=== PATIENT | male | born 1960 | race Caucasian/White ===

== ENCOUNTER 2019-03-14 18:12 | Inpatient (IN) | payer MEDICARE, MEDICAID ==
[~2019-03-14] VITALS: Ht 182.9 cm; Wt 57.5 kg
[~2019-03-14 18:12] MED LIST: AMIO200T40 PO; ASPI-1009 PO; ATOR40TA PO; DABI150C PO; DIGO125T79 PO; LEVE750T6 PO; LEVO750T21 PO; LISI-604 PO; NITR0.4T51 SL; OMEP20CA11 PO; PRED10TA23 PO; UMEC1DIS PO; etomidate 2mg/ml inj. ONE; rocuronium bromide 100mg/10ml (10mg/ml) injection IV ONE; sod chloride 0.9% 10ml flush syringe IV ONE
[2019-03-14] MEDS ORDERED: ipratropium/albuterol 3ml nebule NEB ONE (18:20)
[2019-03-14] MEDS ORDERED: methylPREDNISolone sod succ 125mg/2ml vial IV ONE (18:20)
[2019-03-14 18:39] LABS: BASOPHILS % (AUTO) 0.1 % (0-1); EOSINOPHILS % (AUTO) 0 % (0-6); HEMATOCRIT 42.1 % (42.0-52.0); HEMOGLOBIN 13.4 g/dl (14.0-17.9); LYMPHOCYTES # (AUTO) 1.1 X10'3 (1.1-4.8); LYMPHOCYTES % (AUTO) 4.9 % (21-51); MEAN CORPUSCULAR HEMOGLOBIN 30.1 PG (27.0-31.0); MEAN CORPUSCULAR HGB CONC 31.9 g/dL (33.0-36.5); MEAN CORPUSCULAR VOLUME 94.4 FL (78-98); MEAN PLATELET VOLUME 7.8 FL (7.4-10.4); MONOCYTES # (AUTO) 1.7 X10'3 (0-0.9); MONOCYTES % (AUTO) 7.8 % (2-12); NEUTROPHILS % (AUTO) 87.2 % (42-75); PLATELET COUNT 243 X10'3 (140-440); RED BLOOD COUNT 4.45 X10'6 (4.70-6.10); WHITE BLOOD COUNT 21.8 X10'3 (4.5-11.0)
[2019-03-14 18:44] LABS: PARTIAL THROMBOPLASTIN TIME 25 SECONDS (22-32)
[2019-03-14 18:46] LABS: ALANINE AMINOTRANSFERASE 87 U/L (12-78); ALBUMIN 2.8 G/DL (3.4-5.0); ALBUMIN/GLOBULIN RATIO 0.6 (1.1-1.5); ALKALINE PHOSPHATASE 134 IU/L (46-116); ANION GAP 12 (8-16); ASPARTATE AMINO TRANSFERASE 18 U/L (10-37); BILIRUBIN,TOTAL 0.4 MG/DL (0.1-1.0); BLOOD UREA NITROGEN 20 MG/DL (7-18); BUN/CREATININE RATIO 19.8 (5.4-32.0); CALCIUM 8.1 MG/DL (8.5-10.1); CHLORIDE 105 MMOL/L (99-107); CREATININE 1.01 MG/DL (0.60-1.10); POTASSIUM 3.7 MMOL/L (3.5-5.1); SODIUM 141 MMOL/L (135-145); TOTAL CARBON DIOXIDE 24.5 MMOL/L (24-32); TOTAL PROTEIN 7.8 G/DL (6.4-8.2); eGFR 75 ML/MIN
[2019-03-14 19:07] LABS: GLUCOSE 215 MG/DL (70-104)
[2019-03-14] MEDS ORDERED: LORazepam 2 mg/ml vial IV ONE (19:25)
--- NOTE | 2019-03-14 19:38 | NUR ---
spoke to dr sims again: patient audibly gurgling verbal for lasix 60mg iv and 10 meq kcl/100 ml patient spitting up pink frothy sputum
[2019-03-14] MEDS ORDERED: furosemide 10 MG/1 ML 10ml inj IV ONE (19:40)
[2019-03-14] MEDS ORDERED: potassium Cl 10 mEq/100mL bag IV ONE (19:40)
--- NOTE | 2019-03-14 19:40 | NUR ---
dr sims informed that patient appears to have a clot in his basilic vein left per ultrasound
[2019-03-14] MEDS ORDERED: midazolam 2 mg/2 ml injection IV ONE (20:00)
[2019-03-14] MEDS ORDERED: midazolam 100mg in NS 100ml 100 ML IV PRN ×2 (20:00→20:21)
[2019-03-14] MEDS ORDERED: fentaNYL/PF 50MCG/1 ML 2ML syringe IV PRN (20:00)
[2019-03-14] MEDS ORDERED: FENTANYL-0.9 % NACL/PF 100 ML IV PRN ×2 (20:00→20:21)
[2019-03-14] MEDS ORDERED: rocuronium 10mg/ml inj IV ONE (20:10)
[2019-03-14] MEDS ORDERED: morphine 2 MG/ML inj. syringe IV PRN (20:10)
[2019-03-14] MEDS: K, MAG and/or Phos replacement - Verify level? MC SCH (20:10)
[2019-03-14] MEDS ORDERED: ondansetron/PF 4mg/2ml inj IV PRN (20:10)
[2019-03-14] MEDS ORDERED: acetaminophen 650mg rectal suppository RC PRN (20:10)
[2019-03-14] MEDS ORDERED: potassium Cl 20mEq/100mL bag 100 ML IV PRN (20:10)
[2019-03-14] MEDS ORDERED: morphine 4 MG/ML inj SYRINge IV PRN (20:10)
[2019-03-14] MEDS ORDERED: etomidate 2mg/ml inj. IV ONE (20:10)
[2019-03-14] MEDS ORDERED: levoFLOXACIN-Levaquin 750MG/D5 150 ML IV ONE (20:10)
[2019-03-14] MEDS ORDERED: potassium Cl 20 mEq SR tablet PO PRN ×2 (20:10)
[2019-03-14] MEDS ORDERED: acetaminophen 325mg tablet PO PRN ×2 (20:10)
[2019-03-14 20:41] LABS: CLARITY,URINE CLEAR (Clear); COLOR,URINE YELLOW (Yellow); GLUCOSE, URINE 100 mg/dl (Neg); KETONES,URINE NEGATIVE (Neg); LEUKOCYTE ESTERASE ,URINE NEGATIVE (Neg); NITRITES, URINE NEGATIVE (Neg); OCCULT BLOOD,URINE SMALL (Neg); PROTEIN,URINE NEGATIVE (Neg); UROBILINOGEN,URINE 0.2 E.U/dL (0.2-1.0)
[2019-03-14 20:44] LABS: UA COLLECTION TYPE FOLEY CATH
[2019-03-14] MEDS: NORepinephrine 8mg/ 250ml NS 250 ML IV SCH (20:44)
--- NOTE | 2019-03-14 20:45 | NUR ---
RESPIRATORY UNABLE TO OBTAIN AB DIFFERENT RTX ATTEMPTED: MD TO PLACE ARTERIAL LINE
[2019-03-14 20:48] LABS: WBC,URINE 0-4 /HPF (0-4)
[2019-03-14 20:49] LABS: BACTERIA,URINE FEW /HPF (Neg); HYALINE CASTS 0-3 /LPF (NEGATIVE); SQUAMOUS EPITHELIAL CELL,UR MODERATE /LPF (FEW)
--- NOTE | 2019-03-14 21:06 | NUR ---
POSITIVE PLACEMENT OF CENTRAL LINE BY DR DOUGLAS. PIV MEDICATIONS OF LEVOPHED, FENTANYL, AND VERSED MOVED TO CENTRAL LINE
[2019-03-14] MEDS: normal saline 1000ml 1,000 ML IV SCH (21:15)
--- NOTE | 2019-03-14 21:31 | NUR ---
DR REED ATTEMPTING TO PLACE FEMORAL ARTERIAL LINE RIGHT: 3 ATTEMPTS
--- NOTE | 2019-03-14 21:37 | NUR ---
RIGHT IJ QUAD LUMEN WITH FENTANYL AT 25MCG/HR, VERSED GTT AT 2MG/HR, NS AT 50ML/HR, LEVOPHED AT 10MCG MIN, LEVAQUIN ABX INFUSING ON VENT OEET SIZE 8 23 CM LIP FIO2 70% PEEP 5, OG TO LIS GREENISH BROWN FLUID, TEMP FC TO GRAVITY PALE YELLOW URINE, 2 PIV TO RIGHT ARM
[2019-03-14 21:51] LABS: ABG BASE EXCESS -4.9 mmol/L (-2.0-3.0); ABG HCO3 23.3 mmol/L (22.0-26.0); ABG OXYGEN SATURATION 91.4 % (95-98); ABG PCO2 (T) 55.4 mmHg (35.0-48.0); ABG PH (T) 7.241 (7.350-7.450); ABG PO2 (T) 75.2 mmHg (83-108); FCOHb 1.3 % (0.5-1.5); FMetHb 0.1 % (0.3-1.12); FO2Hb 90.1 % (94-100); MINUTE VOLUME 10 L/min; PATIENT TEMPERATURE 36.8; PEEP 5 cm H2O; RESPIRATORY RATE 20 b/min; RESPIRATORY RATE (OBSERVED) 20 b/min; TIDAL VOLUME 450 mL; TOTAL HEMOGLOBIN 15.4 G/dl (14.0-18.0)
--- NOTE | 2019-03-14 21:51 | NUR ---
phone report to fiction and nonfiction prose writerKATI Fabian patient to go to room with rn and respiratory therapy
--- NOTE | 2019-03-14 21:52 | NUR ---
Patient in ER. I have received report from Marily PARIKH and had the opportunity to ask questions. Awaiting patient from ER.
--- NOTE | 2019-03-14 21:52 | NUR ---
PREVIOUS DOCUMENTATION BY MARIBEL JON RN
--- NOTE | 2019-03-14 22:20 | NUR ---
Pt arrived to ICU room 2041 via gurney from ER. Intubated & bagged in route. Pt is sedate. Right IJ triple lumen centeral line is intact. Peripheral IV lines x2 to right arm. #20G in right hand, & #20G in right F/A. OGT taped to ETT. Atkins with 1000ml clear colored urine.
[2019-03-14 22:30] VITALS: BP 115/91
[2019-03-14 22:45] VITALS: BP 110/81
[2019-03-14] MEDS: ipratropium/albuterol 3ml nebule NEB SCH (22:46)
[2019-03-14 23:00] VITALS: BP 113/71
[2019-03-14 23:15] VITALS: BP 92/70
[2019-03-14 23:30] VITALS: BP 98/74
[2019-03-14 23:45] VITALS: BP 76/48
[2019-03-15] VITALS (25 sets, daily range): BP systolic 72–136; BP diastolic 46–84
[2019-03-15 01:08] LABS: BASOPHILS # (AUTO) 0.1 X10'3 (0-0.2); BASOPHILS % (AUTO) 0.4 % (0-1); EOSINOPHILS % (AUTO) 0 % (0-6); HEMATOCRIT 41.2 % (42.0-52.0); HEMOGLOBIN 13.3 g/dl (14.0-17.9); LYMPHOCYTES # (AUTO) 0.4 X10'3 (1.1-4.8); LYMPHOCYTES % (AUTO) 1.8 % (21-51); MEAN CORPUSCULAR HEMOGLOBIN 30.2 PG (27.0-31.0); MEAN CORPUSCULAR HGB CONC 32.2 g/dL (33.0-36.5); MEAN CORPUSCULAR VOLUME 93.7 FL (78-98); MEAN PLATELET VOLUME 8.2 FL (7.4-10.4); MONOCYTES # (AUTO) 1.3 X10'3 (0-0.9); MONOCYTES % (AUTO) 5.9 % (2-12); NEUTROPHILS # (AUTO) 19.5 X10'3 (1.8-7.7); NEUTROPHILS % (AUTO) 91.9 % (42-75); PLATELET COUNT 238 X10'3 (140-440); RED CELL DISTRIBUTION WIDTH 16.9 % (11.5-14.5); WHITE BLOOD COUNT 21.2 X10'3 (4.5-11.0)
[2019-03-15 01:09] LABS: ALANINE AMINOTRANSFERASE 76 U/L (12-78); ALBUMIN 2.4 G/DL (3.4-5.0); ALBUMIN/GLOBULIN RATIO 0.5 (1.1-1.5); ALKALINE PHOSPHATASE 126 IU/L (46-116); ANION GAP 8 (8-16); ASPARTATE AMINO TRANSFERASE 13 U/L (10-37); BILIRUBIN,TOTAL 0.5 MG/DL (0.1-1.0); BLOOD UREA NITROGEN 21 MG/DL (7-18); BUN/CREATININE RATIO 18.9 (5.4-32.0); CALCIUM 7.9 MG/DL (8.5-10.1); CHLORIDE 106 MMOL/L (99-107); CREATININE 1.11 MG/DL (0.60-1.10); GLUCOSE 222 MG/DL (70-104); POTASSIUM 4.3 MMOL/L (3.5-5.1); SODIUM 141 MMOL/L (135-145); TOTAL CARBON DIOXIDE 27.4 MMOL/L (24-32); TOTAL PROTEIN 6.9 G/DL (6.4-8.2); eGFR 68 ML/MIN
[2019-03-15 01:10] LABS: PHOSPHORUS 4.5 MG/DL (2.3-4.5)
[2019-03-15 02:31] LABS: ABG BASE EXCESS -0.2 mmol/L (-2.0-3.0); ABG HCO3 25.2 mmol/L (22.0-26.0); ABG OXYGEN SATURATION 99.6 % (95-98); ABG PCO2 (T) 43.6 mmHg (35.0-48.0); ABG PH (T) 7.378 (7.350-7.450); ABG PO2 (T) 262.3 mmHg (83-108); FCOHb 0.8 % (0.5-1.5); FMetHb 0.1 % (0.3-1.12); FO2Hb 98.7 % (94-100); MINUTE VOLUME 12 L/min; PATIENT TEMPERATURE 36.7; PEEP 5 cm H2O; RESPIRATORY RATE 20 b/min; RESPIRATORY RATE (OBSERVED) 21 b/min; TIDAL VOLUME 500 mL; TOTAL HEMOGLOBIN 13.9 G/dl (14.0-18.0)
[2019-03-15] MEDS: ipratropium/albuterol 3ml nebule NEB SCH ×6 (02:33→22:56)
[2019-03-15] MEDS: methylPREDNISolone sod succ/PF 40mg inj. IV SCH ×4 (02:45→19:59)
[2019-03-15] MEDS: NORepinephrine 8mg/ 250ml NS 250 ML IV SCH (05:59)
--- NOTE | 2019-03-15 06:27 | NUR ---
Problems reprioritized. Patient report given, questions answered & plan of care reviewed with Louis PARIKH.
--- NOTE | 2019-03-15 06:30 | NUR ---
Patient in room ICU 2041. I have received report from Caren PARIKH and had the opportunity to ask questions and assume patient care.
[2019-03-15] MEDS: levoFLOXACIN-Levaquin 750MG/D5 150 ML IV SCH (07:09)
[2019-03-15] MEDS ORDERED: furosemide 40mg/4ml inj IV ONE (07:15)
[2019-03-15] MEDS ORDERED: albuterol 2.5 MG/3 ML nebule NEB PRN (07:30)
[2019-03-15] MEDS ORDERED: ipratropium 0.5 MG/2.5ML nebule IH PRN (07:30)
[2019-03-15] MEDS: ESOMEPRAZOLE 40 MG VIAL IV SCH (07:34)
[2019-03-15] MEDS ORDERED: atorvastatin 20mg tablet PO SCH (08:00)
[2019-03-15] MEDS: K, MAG and/or Phos replacement - Verify level? MC SCH (08:00)
[2019-03-15] MEDS ORDERED: digoxin 125mcg (0.125mg) tablet PO SCH (08:00)
[2019-03-15] MEDS ORDERED: dabigatran 150mg capsule PO SCH (08:00)
[2019-03-15] MEDS ORDERED: levetiracetam 250mg tablet PO SCH (08:00)
[2019-03-15] MEDS ORDERED: pantoprazole 40 MG vial IV SCH (08:00)
[2019-03-15] MEDS ORDERED: lisinopril 5mg tablet PO SCH (08:00)
[2019-03-15] MEDS ORDERED: amiodarone 200mg tablet PO SCH ×2 (08:00→11:40)
[2019-03-15] MEDS ORDERED: aspirin 81mg tablet.DR PO SCH (08:00)
--- NOTE | 2019-03-15 10:15 | NUR ---
Dr. Gunderson rounded on patient with multidisciplinary team. Made aware of DVT prophylaxis need, pharmacy will follow up on this. Patient needs to be on lower dose of vasopressors before weaning can be seriously considered. Patient failed weaners this am.
[2019-03-15] MEDS ORDERED: MESSAGE TO PHARMACY PO ONE (10:30)
[2019-03-15] MEDS ORDERED: insulin regular, human vial - multi-dose SQ SCH (10:30)
[2019-03-15] MEDS ORDERED: dextrose 50%-water 50ml dispensing syringe IV PRN ×2 (10:30)
[2019-03-15] MEDS ORDERED: dextrose ORAL solution 15 GM/59 ML bottle PO PRN ×2 (10:30)
[2019-03-15] MEDS ORDERED: glucagon, human recombinant 1mg kit SUBCUT PRN (10:30)
[2019-03-15] MEDS ORDERED: amiodarone 200mg tablet OGT SCH (11:40)
[2019-03-15] MEDS ORDERED: acetaminophen 325mg tablet OGT PRN ×2 (11:57)
[2019-03-15] MEDS ORDERED: lisinopril 5mg tablet OGT SCH (12:00)
[2019-03-15] MEDS: enoxaparin 40mg/0.4ml syringe SQ SCH (12:06)
--- NOTE | 2019-03-15 13:20 | NUR ---
PRESSURE ULCER EDUCATION: DEFINITION: A pressure ulcer is an area of skin that breaks down when you stay in one position too long. The constant pressure against the skin reduces the blood flow to that area and the affected tissue dies. CAUSES: "Being bedridden or in a wheelchair "Fragile skin "Having a chronic condition, such as diabetes or vascular disease "Inability to move certain parts of your body without assistance "Older age "Incontinence of urine or stool SYMPTOMS: "A reddened area that DOES NOT turn white when pressed on - this can be the beginning of a pressure ulcer "A blister, deep sore or a crater - these can be advanced pressure ulcers FIRST AID: "Relieve the pressure on this area "Keep the area clean and dry "Call your primary doctor if you see any of the above symptoms "DO NOT massage the area "DO NOT use a donut shaped or ring shaped pillow- these actually interfere with the blood flow and cause complications PREVENTION: "Check for pressure ulcers everyday "Change position at least every two hours to relieve pressure "Use items that help relieve pressure- pillows, sheepskin, foam padding, and powders. "Keep skin clean and dry "Eat healthy well balanced meals "Exercise daily IF YOU SEE ANY OF THESE SYMPTOMS WHILE IN THE HOSPITAL - TELL YOUR NURSE IMMEDIATELY. IF YOU SEE ANY OF THESE SYMPTOMS WHILE AT HOME OR HAVE ANY QUESTIONS OR CONCERNS ABOUT PRESSURE ULCERS - CALL YOUR PRIMARY DOCTOR IMMEDIATELY. Addendum: 03/15/19 at 1320 by Namrata English RN Amended: Links added.
--- NOTE | 2019-03-15 13:29 | NUR ---
Recent discharge yesterday. Became short of breath at home, admitted back and is intubated with pulmonary edema, acute respiratory failure with hypoxia, COPD, heart failure. MAP between 50-67, not appropriate to feed at this time. TF recs are below. Recommend: 1. when MAP is above 60 and when OK by MD, patient would benefit from nutrition support while intubated with vital AF at 65 ml/hr 2. IF TF, daily wts and prealbumin q Thursday and Addendum: 03/15/19 at [address] Amended: Links added.
--- NOTE | 2019-03-15 15:10 | NUR ---
Wound consult, patient's sacrum skin tear noted, WOC is following pt. Will continue to follow patient per protocol. Addendum: 03/15/19 at [address] Amended: Links added.
[2019-03-15 16:21] LABS: OXYGEN SATURATION (MIXED VEN) 58.6 % (60-80); PO2 MIXED VENOUS (TEMP COR) 32.2 mmHg (35-46)
[2019-03-15] MEDS: DOBUTamine-DoBUTrex 500mg/D5W 250 ML IV SCH (16:45)
--- NOTE | 2019-03-15 18:06 | NUR ---
Patient in room ICU 2041. I have received report from Louis PARIKH and had the opportunity to ask questions and assume patient care. Patient remains orally intubated #8.0 ETT @24cm .Current vent settings AC/VC FIO2 40% rate 20 TV500 +5PEEP. ETT is secured with Comfit. OGT is secured with tape to ETT. Oxygen saturation is 99% RR 21/min. On IV sedation Fentanyl @ 25 mcg/hr, Versed at 4mg/hr Levophed @ 2mcg/min. Dobutamine @ 5mcg/kg/min. RASS score is -2. Rhythm is V paced/AV paced underlying rhythm is sinus. Right IJ central line is transduced CVP reads 8. Atkins drains clear yellow urine. No distress at this time. Safety precautions observed bilateral soft wrist restraints are on.
--- NOTE | 2019-03-15 18:06 | NUR ---
Problems reprioritized. Patient report given, questions answered & plan of care reviewed with Caren PARIKH.
--- NOTE | 2019-03-15 18:58 | NUR ---
Indwelling Atkins catheter found completely out of penis with deflated balloon. Patient instructed regarding situation and need to replace Atkins catheter. Patient is alert & awake, nodds yes and no to simple questions. Is able to follow commands & is aware of procedure to replace catheter.
--- NOTE | 2019-03-15 19:04 | NUR ---
16 icelandic temperature Atkins catheter replaced using sterile technique. PT tolerated well. Atkins in place and draining to gravity.
[2019-03-15] MEDS: lactobacillus rhamnosus 10,000 MMU CELLS/CAPSULE PO SCH (20:00)
[2019-03-15] MEDS: levetiracetam 100mg/ml oral solution 5ml UD cup OGT SCH (20:16)
[2019-03-15] MEDS: insulin glargine (Lantus) pen - multi-dose SQ SCH (21:00)
--- NOTE | 2019-03-15 23:00 | NUR ---
Oxygen saturation remain at 100% FIO2 dropped to 30%.
[2019-03-16] VITALS (23 sets, daily range): BP systolic 92–154; BP diastolic 40–68
--- NOTE | 2019-03-16 02:24 | NUR ---
Call placed to Donny Hicks regarding BS trends and glucose protocol. Order received to not treat BS at this time. Pt remains NPO.
[2019-03-16] MEDS: mineral oil/petrolatum ophthal oint EACHEYE SCH ×4 (02:29→19:55)
[2019-03-16] MEDS: methylPREDNISolone sod succ/PF 40mg inj. IV SCH ×4 (02:29→19:53)
[2019-03-16 02:55] LABS: ABG BASE EXCESS 6.8 mmol/L (-2.0-3.0); ABG HCO3 29.4 mmol/L (22.0-26.0); ABG OXYGEN SATURATION 95.1 % (95-98); ABG PH (T) 7.553 (7.350-7.450); ABG PO2 (T) 71.5 mmHg (83-108); FCOHb 0.5 % (0.5-1.5); FMetHb 0.3 % (0.3-1.12); FO2Hb 94.3 % (94-100); MINUTE VOLUME 11 L/min; PATIENT TEMPERATURE 36.4; PEEP 5 cm H2O; RESPIRATORY RATE 20 b/min; RESPIRATORY RATE (OBSERVED) 21 b/min; TIDAL VOLUME 500 mL; TOTAL HEMOGLOBIN 11.7 G/dl (14.0-18.0)
[2019-03-16] MEDS: ipratropium/albuterol 3ml nebule NEB SCH ×6 (03:30→20:10)
[2019-03-16 04:11] LABS: ANION GAP 6 (8-16); BILIRUBIN,TOTAL 0.4 MG/DL (0.1-1.0); BLOOD UREA NITROGEN 17 MG/DL (7-18); CHLORIDE 109 MMOL/L (99-107); CREATININE 0.85 MG/DL (0.60-1.10); GLUCOSE 157 MG/DL (70-104); MAGNESIUM 2.2 MG/DL (1.5-2.4); PHOSPHORUS 2.5 MG/DL (2.3-4.5); POTASSIUM 3.1 MMOL/L (3.5-5.1); SODIUM 144 MMOL/L (135-145); TOTAL CARBON DIOXIDE 29.2 MMOL/L (24-32); eGFR > 90 ML/MIN
[2019-03-16 04:12] LABS: ALANINE AMINOTRANSFERASE 47 U/L (12-78); ALBUMIN 1.9 G/DL (3.4-5.0); ALBUMIN/GLOBULIN RATIO 0.5 (1.1-1.5); ALKALINE PHOSPHATASE 82 IU/L (46-116); ASPARTATE AMINO TRANSFERASE 10 U/L (10-37); BASOPHILS % (AUTO) 0.3 % (0-1); EOSINOPHILS % (AUTO) 0.1 % (0-6); HEMATOCRIT 32.5 % (42.0-52.0); HEMOGLOBIN 10.8 g/dl (14.0-17.9); LYMPHOCYTES # (AUTO) 0.5 X10'3 (1.1-4.8); LYMPHOCYTES % (AUTO) 9.3 % (21-51); MEAN CORPUSCULAR HEMOGLOBIN 30.7 PG (27.0-31.0); MEAN CORPUSCULAR HGB CONC 33.3 g/dL (33.0-36.5); MEAN CORPUSCULAR VOLUME 92.3 FL (78-98); MEAN PLATELET VOLUME 8.1 FL (7.4-10.4); MONOCYTES # (AUTO) 0.4 X10'3 (0-0.9); MONOCYTES % (AUTO) 7.3 % (2-12); NEUTROPHILS # (AUTO) 4.4 X10'3 (1.8-7.7); PLATELET COUNT 122 X10'3 (140-440); RED BLOOD COUNT 3.52 X10'6 (4.70-6.10); RED CELL DISTRIBUTION WIDTH 17.4 % (11.5-14.5); TOTAL PROTEIN 5.4 G/DL (6.4-8.2); WHITE BLOOD COUNT 5.3 X10'3 (4.5-11.0)
[2019-03-16] MEDS: normal saline 1000ml 1,000 ML IV SCH (05:08)
--- NOTE | 2019-03-16 07:03 | NUR ---
Problems reprioritized. Patient report given, questions answered & plan of care reviewed with Patti PARIKH.
--- NOTE | 2019-03-16 07:03 | NUR ---
Patient in room ICU 2041. I have received report from Caren; mounted police officer RN and had the opportunity to ask questions and assume patient care.
[2019-03-16] MEDS: K, MAG and/or Phos replacement - Verify level? MC SCH (08:00)
[2019-03-16] MEDS: levoFLOXACIN-Levaquin 750MG/D5 150 ML IV SCH (09:01)
[2019-03-16] MEDS: ESOMEPRAZOLE 40 MG VIAL IV SCH ×2 (09:05→21:27)
[2019-03-16] MEDS: atorvastatin 20mg tablet OGT SCH (09:05)
[2019-03-16] MEDS: digoxin 125mcg (0.125mg) tablet OGT SCH (09:05)
[2019-03-16] MEDS: lactobacillus rhamnosus 10,000 MMU CELLS/CAPSULE PO SCH ×2 (09:05→19:52)
[2019-03-16] MEDS: aspirin 81mg tab.chew OGT SCH (09:06)
[2019-03-16] MEDS: levetiracetam 100mg/ml oral solution 5ml UD cup OGT SCH ×2 (09:06→19:53)
[2019-03-16] MEDS: amiodarone 200mg tablet OGT SCH (09:06)
[2019-03-16] MEDS: enoxaparin 40mg/0.4ml syringe SQ SCH (10:25)
[2019-03-16] MEDS: potassium Cl 20mEq/100mL bag 100 ML IV PRN ×3 (10:26→10:35)
--- NOTE | 2019-03-16 10:28 | NUR ---
Pt remains intubated with MAP >60. No TF at this time pending possible extubation per MD at critical care rounds. On K replacement. Will continue to follow. Addendum: 03/16/19 at [address] Amended: Links added.
[2019-03-16] MEDS: dexmedetomidin/NS 400mcg/100ml 100 ML IV SCH (12:30)
[2019-03-16] MEDS ORDERED: racepinephrine 11.25mg/0.5ml nebule NEB PRN (14:30)
[2019-03-16] MEDS ORDERED: ipratropium/albuterol 3ml nebule NEB PRN (14:30)
[2019-03-16] MEDS: DOBUTamine-DoBUTrex 500mg/D5W 250 ML IV SCH (15:04)
[2019-03-16] MEDS: furosemide 40mg tablet PO SCH ×2 (18:03→19:52)
--- NOTE | 2019-03-16 18:25 | NUR ---
Patient in room ICU 2041. I have received report from Patti PRAIKH and had the opportunity to ask questions and assume patient care. Patient received awake alert & oriented to person & place. On 2 liters oxygen via NC. patient keeps NC in mouth as he does not like wearing the oxygen. O2 saturation is 92%. Right IJ central line is transduced. pt is pleasant & in good spirits no distress.
[2019-03-16] MEDS: POTASSIUM BICARB 20meq eff tab 20 MEQ TABLET.EFF PO SCH (19:53)
[2019-03-16] MEDS: insulin glargine (Lantus) pen - multi-dose SQ SCH (21:00)
[2019-03-17] VITALS (19 sets, daily range): BP systolic 75–153; BP diastolic 49–98
--- NOTE | 2019-03-17 00:30 | NUR ---
Pt requesting a mask for oxygen during the night while sleeping. Pt saturates 92% on venti mask 28% FIO2 6 liters.
[2019-03-17] MEDS: mineral oil/petrolatum ophthal oint EACHEYE SCH (01:38)
[2019-03-17] MEDS: methylPREDNISolone sod succ/PF 40mg inj. IV SCH ×2 (02:08→08:42)
[2019-03-17 02:27] LABS: BASOPHILS % (AUTO) 0.1 % (0-1); EOSINOPHILS % (AUTO) 0 % (0-6); HEMATOCRIT 32.7 % (42.0-52.0); HEMOGLOBIN 10.8 g/dl (14.0-17.9); LYMPHOCYTES # (AUTO) 0.4 X10'3 (1.1-4.8); LYMPHOCYTES % (AUTO) 4.3 % (21-51); MEAN CORPUSCULAR HEMOGLOBIN 30.4 PG (27.0-31.0); MEAN CORPUSCULAR HGB CONC 33.1 g/dL (33.0-36.5); MEAN CORPUSCULAR VOLUME 91.8 FL (78-98); MONOCYTES # (AUTO) 0.5 X10'3 (0-0.9); MONOCYTES % (AUTO) 5.9 % (2-12); NEUTROPHILS # (AUTO) 8.3 X10'3 (1.8-7.7); NEUTROPHILS % (AUTO) 89.7 % (42-75); PLATELET COUNT 137 X10'3 (140-440); RED BLOOD COUNT 3.56 X10'6 (4.70-6.10); RED CELL DISTRIBUTION WIDTH 17.3 % (11.5-14.5); WHITE BLOOD COUNT 9.3 X10'3 (4.5-11.0)
[2019-03-17 02:49] LABS: ALANINE AMINOTRANSFERASE 44 U/L (12-78); ALBUMIN 2.1 G/DL (3.4-5.0); ALBUMIN/GLOBULIN RATIO 0.6 (1.1-1.5); ALKALINE PHOSPHATASE 77 IU/L (46-116); ANION GAP 3 (8-16); ASPARTATE AMINO TRANSFERASE 9 U/L (10-37); BILIRUBIN,TOTAL 0.4 MG/DL (0.1-1.0); BLOOD UREA NITROGEN 20 MG/DL (7-18); BUN/CREATININE RATIO 24.1 (5.4-32.0); CALCIUM 7.8 MG/DL (8.5-10.1); CHLORIDE 107 MMOL/L (99-107); CREATININE 0.83 MG/DL (0.60-1.10); GLUCOSE 134 MG/DL (70-104); MAGNESIUM 2.3 MG/DL (1.5-2.4); PHOSPHORUS 3.1 MG/DL (2.3-4.5); POTASSIUM 3.2 MMOL/L (3.5-5.1); SODIUM 142 MMOL/L (135-145); TOTAL CARBON DIOXIDE 32.3 MMOL/L (24-32); TOTAL PROTEIN 5.7 G/DL (6.4-8.2); eGFR > 90 ML/MIN
[2019-03-17] MEDS: ipratropium/albuterol 3ml nebule NEB SCH ×6 (03:00→20:06)
[2019-03-17] MEDS: dexmedetomidin/NS 400mcg/100ml 100 ML IV SCH (03:12)
[2019-03-17] MEDS: potassium Cl 20mEq/100mL bag 100 ML IV PRN ×2 (03:46→05:08)
--- NOTE | 2019-03-17 06:20 | NUR ---
Problems reprioritized. Patient report given, questions answered & plan of care reviewed with Abigail PARIKH.
--- NOTE | 2019-03-17 06:30 | NUR ---
Patient in room ICU 2041. I have received report from geraldine and had the opportunity to ask questions and assume patient care.
[2019-03-17] MEDS: K, MAG and/or Phos replacement - Verify level? MC SCH (08:00)
[2019-03-17] MEDS: aspirin 81mg tab.chew OGT SCH (08:33)
[2019-03-17] MEDS: enoxaparin 40mg/0.4ml syringe SQ SCH (08:33)
[2019-03-17] MEDS: amiodarone 200mg tablet OGT SCH (08:34)
[2019-03-17] MEDS: furosemide 40mg tablet PO SCH ×2 (08:34→21:27)
[2019-03-17] MEDS: atorvastatin 20mg tablet OGT SCH (08:34)
[2019-03-17] MEDS: digoxin 125mcg (0.125mg) tablet OGT SCH (08:34)
[2019-03-17] MEDS: lactobacillus rhamnosus 10,000 MMU CELLS/CAPSULE PO SCH ×2 (08:42→21:27)
[2019-03-17] MEDS: ESOMEPRAZOLE 40 MG VIAL IV SCH (08:43)
[2019-03-17] MEDS: levoFLOXACIN-Levaquin 750MG/D5 150 ML IV SCH (09:00)
[2019-03-17] MEDS: POTASSIUM BICARB 20meq eff tab 20 MEQ TABLET.EFF PO SCH ×2 (09:00→21:27)
[2019-03-17] MEDS: levetiracetam 100mg/ml oral solution 5ml UD cup OGT SCH ×2 (09:08→21:28)
--- NOTE | 2019-03-17 12:07 | NUR ---
Reassessment: patient is extubated, observed eating breakfast this morning. Patient's diet order is mechanical soft with ground meats, thin liquids per REVENUE AGENT recs, and heart healthy. Great appetite, ate 100% of breakfast. Continues treatment for CHF and COPD. Will continue to follow patient. Recommend: 1. Continue heart healthy diet, mechanical soft with ground meats per REVENUE AGENT recs 2. Monitor BM and PO intake 3. Wt per rx Addendum: 03/17/19 at [address] Amended: Links added.
[2019-03-17] MEDS: pantoprazole 40mg Tablet.DR PO SCH ×2 (14:11→21:27)
[2019-03-17] MEDS: predniSONE 20 mg tablet PO SCH (14:12)
--- NOTE | 2019-03-17 16:32 | NUR ---
pt awake, alert, oriented today, very talkative. bss passed this am- took 100% of meals. piv started by charge nurse. central line dcd. pt up to bsc for bm x 2, wobbly- needs 2 people to get back to be. sbp on rt arm- sbp to 70's rt and left leg, vs 120's in left arm
--- NOTE | 2019-03-17 18:15 | NUR ---
Patient in room ICU 2041. I have received report from Abigail Layton RN and had the opportunity to ask questions and assume patient care. Patient is awake and alert in bed. No distress at this time. no complaint of pain. Patient with oxygen in his mouth at 2 lpm
--- NOTE | 2019-03-17 19:45 | NUR ---
Problems reprioritized. Patient report given, questions answered & plan of care reviewed with Darlyn Santizo RN. Patient to be transfered to room [facility]. Patient is currently A&O x4. pink, warm and dry. In no distress at this time. Transfers with 2 person assist with gait belt. Has been up to the bedside commode with one bowel movement. IV saline lock to right forearm 22 ga. Patient placed on school lunch monitor for transfer. Patient and belongings transferred by bed to room [facility].
--- NOTE | 2019-03-17 19:55 | NUR ---
PATIENT TRANSFERRED TO ROOM 3028B FROM ICU. PLACED COMFORTABLE IN BED.
[2019-03-18] MEDS: ipratropium/albuterol 3ml nebule NEB SCH ×4 (02:10→21:05)
[2019-03-18 03:00] VITALS: BP 116/53
[2019-03-18 05:03] LABS: BASOPHILS % (AUTO) 0.1 % (0-1); EOSINOPHILS % (AUTO) 0 % (0-6); HEMATOCRIT 31.8 % (42.0-52.0); HEMOGLOBIN 10.7 g/dl (14.0-17.9); LYMPHOCYTES # (AUTO) 0.4 X10'3 (1.1-4.8); LYMPHOCYTES % (AUTO) 3.6 % (21-51); MEAN CORPUSCULAR HEMOGLOBIN 30.8 PG (27.0-31.0); MEAN CORPUSCULAR HGB CONC 33.5 g/dL (33.0-36.5); MEAN CORPUSCULAR VOLUME 91.9 FL (78-98); MEAN PLATELET VOLUME 7.9 FL (7.4-10.4); MONOCYTES # (AUTO) 0.6 X10'3 (0-0.9); MONOCYTES % (AUTO) 6.3 % (2-12); NEUTROPHILS # (AUTO) 8.9 X10'3 (1.8-7.7); PLATELET COUNT 136 X10'3 (140-440); RED BLOOD COUNT 3.46 X10'6 (4.70-6.10); RED CELL DISTRIBUTION WIDTH 17.2 % (11.5-14.5); WHITE BLOOD COUNT 9.9 X10'3 (4.5-11.0)
[2019-03-18 05:19] LABS: ALANINE AMINOTRANSFERASE 43 U/L (12-78); ALBUMIN 2.1 G/DL (3.4-5.0); ALBUMIN/GLOBULIN RATIO 0.6 (1.1-1.5); ALKALINE PHOSPHATASE 84 IU/L (46-116); ANION GAP 3 (8-16); ASPARTATE AMINO TRANSFERASE 15 U/L (10-37); BILIRUBIN,TOTAL 0.4 MG/DL (0.1-1.0); BLOOD UREA NITROGEN 26 MG/DL (7-18); BUN/CREATININE RATIO 26.8 (5.4-32.0); CHLORIDE 105 MMOL/L (99-107); CREATININE 0.97 MG/DL (0.60-1.10); GLUCOSE 133 MG/DL (70-104); MAGNESIUM 2.3 MG/DL (1.5-2.4); PHOSPHORUS 3.5 MG/DL (2.3-4.5); POTASSIUM 3.7 MMOL/L (3.5-5.1); SODIUM 140 MMOL/L (135-145); TOTAL CARBON DIOXIDE 32.1 MMOL/L (24-32); TOTAL PROTEIN 5.6 G/DL (6.4-8.2); eGFR 79 ML/MIN
[2019-03-18 06:00] VITALS: BP 128/53
--- NOTE | 2019-03-18 06:12 | NUR ---
Problems reprioritized. Patient report given, questions answered & plan of care reviewed with ALTA PARIKH.
--- NOTE | 2019-03-18 06:30 | NUR ---
Patient in room PCU 3028. I have received report from Fidelia PARIKH and had the opportunity to ask questions and assume patient care.
[2019-03-18] MEDS: aspirin 81mg tab.chew OGT SCH (07:48)
[2019-03-18] MEDS: amiodarone 200mg tablet OGT SCH (07:49)
[2019-03-18] MEDS: levetiracetam 100mg/ml oral solution 5ml UD cup OGT SCH ×2 (07:49→20:15)
[2019-03-18] MEDS: POTASSIUM BICARB 20meq eff tab 20 MEQ TABLET.EFF PO SCH ×2 (07:50→20:14)
[2019-03-18] MEDS: atorvastatin 20mg tablet OGT SCH (07:50)
[2019-03-18] MEDS: lactobacillus rhamnosus 10,000 MMU CELLS/CAPSULE PO SCH ×2 (07:50→20:15)
[2019-03-18] MEDS: digoxin 125mcg (0.125mg) tablet OGT SCH (07:50)
[2019-03-18] MEDS: enoxaparin 40mg/0.4ml syringe SQ SCH (07:51)
[2019-03-18] MEDS: predniSONE 20 mg tablet PO SCH (07:51)
[2019-03-18] MEDS: furosemide 40mg tablet PO SCH ×2 (07:51→20:15)
[2019-03-18] MEDS: pantoprazole 40mg Tablet.DR PO SCH ×2 (07:51→20:15)
[2019-03-18] MEDS: levoFLOXACIN-Levaquin 750MG/D5 150 ML IV SCH (07:52)
[2019-03-18] MEDS: K, MAG and/or Phos replacement - Verify level? MC SCH (07:53)
[2019-03-18 11:00] VITALS: BP 142/75
[2019-03-18 15:00] VITALS: BP 131/65
[2019-03-18 18:00] VITALS: BP 135/55
--- NOTE | 2019-03-18 18:00 | NUR ---
Patient in room PCU 3028. I have received report from KATI Hamm and had the opportunity to ask questions and assume patient care.
--- NOTE | 2019-03-18 18:25 | NUR ---
Problems reprioritized. Patient report given, questions answered & plan of care reviewed with Santana PARIKH.
[2019-03-18] MEDS: dabigatran 150mg capsule PO SCH (20:15)
[2019-03-18 23:00] VITALS: BP 84/53
[2019-03-19 03:00] VITALS: BP 99/70
[2019-03-19] MEDS: ipratropium/albuterol 3ml nebule NEB SCH ×4 (03:03→20:25)
[2019-03-19 06:00] VITALS: BP 167/108
--- NOTE | 2019-03-19 06:22 | NUR ---
Problems reprioritized. Patient report given, questions answered & plan of care reviewed with KATI Hamm
--- NOTE | 2019-03-19 06:30 | NUR ---
Patient in room PCU 3028. I have received report from Warren PARIKH and had the opportunity to ask questions and assume patient care.
[2019-03-19 06:34] LABS: ALANINE AMINOTRANSFERASE 40 U/L (12-78); ALBUMIN 2.2 G/DL (3.4-5.0); ALBUMIN/GLOBULIN RATIO 0.6 (1.1-1.5); ALKALINE PHOSPHATASE 82 IU/L (46-116); ANION GAP 7 (8-16); ASPARTATE AMINO TRANSFERASE 21 U/L (10-37); BILIRUBIN,TOTAL 0.4 MG/DL (0.1-1.0); BLOOD UREA NITROGEN 25 MG/DL (7-18); BUN/CREATININE RATIO 27.8 (5.4-32.0); CALCIUM 7.6 MG/DL (8.5-10.1); CHLORIDE 101 MMOL/L (99-107); GLUCOSE 92 MG/DL (70-104); MAGNESIUM 2.3 MG/DL (1.5-2.4); POTASSIUM 3.8 MMOL/L (3.5-5.1); SODIUM 138 MMOL/L (135-145); TOTAL CARBON DIOXIDE 30.2 MMOL/L (24-32); TOTAL PROTEIN 5.9 G/DL (6.4-8.2); eGFR 86 ML/MIN
[2019-03-19 06:40] LABS: BASOPHILS % (AUTO) 0.1 % (0-1); EOSINOPHILS % (AUTO) 0.3 % (0-6); HEMATOCRIT 35.4 % (42.0-52.0); HEMOGLOBIN 11.7 g/dl (14.0-17.9); LYMPHOCYTES # (AUTO) 1.4 X10'3 (1.1-4.8); LYMPHOCYTES % (AUTO) 14.6 % (21-51); MEAN CORPUSCULAR HEMOGLOBIN 30.4 PG (27.0-31.0); MEAN CORPUSCULAR HGB CONC 33.2 g/dL (33.0-36.5); MEAN CORPUSCULAR VOLUME 91.6 FL (78-98); MONOCYTES # (AUTO) 0.7 X10'3 (0-0.9); MONOCYTES % (AUTO) 7.2 % (2-12); NEUTROPHILS # (AUTO) 7.3 X10'3 (1.8-7.7); NEUTROPHILS % (AUTO) 77.8 % (42-75); PLATELET COUNT 140 X10'3 (140-440); RED BLOOD COUNT 3.86 X10'6 (4.70-6.10); WHITE BLOOD COUNT 9.4 X10'3 (4.5-11.0)
[2019-03-19] MEDS: K, MAG and/or Phos replacement - Verify level? MC SCH (08:00)
[2019-03-19] MEDS: amiodarone 200mg tablet OGT SCH (08:33)
[2019-03-19] MEDS: predniSONE 20 mg tablet PO SCH (08:33)
[2019-03-19] MEDS: lactobacillus rhamnosus 10,000 MMU CELLS/CAPSULE PO SCH ×2 (08:33→20:18)
[2019-03-19] MEDS: furosemide 40mg tablet PO SCH ×2 (08:33→20:18)
[2019-03-19] MEDS: pantoprazole 40mg Tablet.DR PO SCH ×2 (08:34→20:18)
[2019-03-19] MEDS: dabigatran 150mg capsule PO SCH ×2 (08:36→20:17)
[2019-03-19] MEDS: POTASSIUM BICARB 20meq eff tab 20 MEQ TABLET.EFF PO SCH ×2 (08:37→20:18)
[2019-03-19] MEDS: atorvastatin 20mg tablet OGT SCH (08:37)
[2019-03-19] MEDS: aspirin 81mg tab.chew OGT SCH (08:37)
[2019-03-19] MEDS: levetiracetam 100mg/ml oral solution 5ml UD cup OGT SCH ×2 (08:38→20:18)
[2019-03-19] MEDS: digoxin 125mcg (0.125mg) tablet OGT SCH (08:41)
[2019-03-19 11:00] VITALS: BP 92/58
[2019-03-19] MEDS ORDERED: levoFLOXACIN 750MG TABLET PO SCH (11:00)
--- NOTE | 2019-03-19 18:00 | NUR ---
Patient in room PCU 3024. I have received report from Kirsten PARIKH, and had the opportunity to ask questions and assume patient care
--- NOTE | 2019-03-19 18:04 | NUR ---
Problems reprioritized. Patient report given, questions answered & plan of care reviewed with Warren PARIKH.
[2019-03-19 19:00] VITALS: BP 138/58
[2019-03-19 23:00] VITALS: BP 130/63
[2019-03-20] MEDS: ipratropium/albuterol 3ml nebule NEB SCH ×4 (02:20→20:16)
[2019-03-20 03:00] VITALS: BP 140/59
[2019-03-20 06:00] VITALS: BP 117/69
[2019-03-20 06:19] LABS: BASOPHILS % (AUTO) 0.2 % (0-1); EOSINOPHILS % (AUTO) 0.5 % (0-6); HEMOGLOBIN 12.8 g/dl (14.0-17.9); LYMPHOCYTES # (AUTO) 1.3 X10'3 (1.1-4.8); LYMPHOCYTES % (AUTO) 12.2 % (21-51); MEAN CORPUSCULAR HEMOGLOBIN 30.6 PG (27.0-31.0); MEAN CORPUSCULAR VOLUME 92.7 FL (78-98); MEAN PLATELET VOLUME 8.4 FL (7.4-10.4); MONOCYTES # (AUTO) 0.7 X10'3 (0-0.9); MONOCYTES % (AUTO) 6.6 % (2-12); NEUTROPHILS # (AUTO) 8.3 X10'3 (1.8-7.7); NEUTROPHILS % (AUTO) 80.5 % (42-75); PLATELET COUNT 151 X10'3 (140-440); WHITE BLOOD COUNT 10.3 X10'3 (4.5-11.0)
[2019-03-20 06:22] LABS: ALANINE AMINOTRANSFERASE 47 U/L (12-78); ALBUMIN 2.4 G/DL (3.4-5.0); ALBUMIN/GLOBULIN RATIO 0.6 (1.1-1.5); ALKALINE PHOSPHATASE 90 IU/L (46-116); ANION GAP 5 (8-16); ASPARTATE AMINO TRANSFERASE 19 U/L (10-37); BILIRUBIN,TOTAL 0.5 MG/DL (0.1-1.0); BLOOD UREA NITROGEN 22 MG/DL (7-18); BUN/CREATININE RATIO 23.2 (5.4-32.0); CALCIUM 7.9 MG/DL (8.5-10.1); CHLORIDE 100 MMOL/L (99-107); CREATININE 0.95 MG/DL (0.60-1.10); GLUCOSE 86 MG/DL (70-104); MAGNESIUM 2.4 MG/DL (1.5-2.4); PHOSPHORUS 2.9 MG/DL (2.3-4.5); POTASSIUM 4.3 MMOL/L (3.5-5.1); SODIUM 137 MMOL/L (135-145); TOTAL CARBON DIOXIDE 32.4 MMOL/L (24-32); TOTAL PROTEIN 6.5 G/DL (6.4-8.2); eGFR 81 ML/MIN
--- NOTE | 2019-03-20 06:30 | NUR ---
Patient in room PCU 3028. I have received report from KATI Kelley and had the opportunity to ask questions and assume patient care.
[2019-03-20] MEDS: K, MAG and/or Phos replacement - Verify level? MC SCH (08:00)
[2019-03-20] MEDS: amiodarone 200mg tablet OGT SCH (08:10)
[2019-03-20] MEDS: lactobacillus rhamnosus 10,000 MMU CELLS/CAPSULE PO SCH ×2 (08:10→20:56)
[2019-03-20] MEDS: furosemide 40mg tablet PO SCH ×2 (08:10→20:56)
[2019-03-20] MEDS: pantoprazole 40mg Tablet.DR PO SCH ×2 (08:10→20:56)
[2019-03-20] MEDS: dabigatran 150mg capsule PO SCH ×2 (08:10→20:56)
[2019-03-20] MEDS: POTASSIUM BICARB 20meq eff tab 20 MEQ TABLET.EFF PO SCH ×2 (08:10→20:56)
[2019-03-20] MEDS: atorvastatin 20mg tablet OGT SCH (08:10)
[2019-03-20] MEDS: levetiracetam 100mg/ml oral solution 5ml UD cup OGT SCH ×2 (08:10→20:56)
[2019-03-20] MEDS: predniSONE 20 mg tablet PO SCH (08:11)
[2019-03-20] MEDS: aspirin 81mg tab.chew OGT SCH (08:11)
[2019-03-20] MEDS: digoxin 125mcg (0.125mg) tablet OGT SCH (08:11)
[2019-03-20 11:00] VITALS: BP 91/58
--- NOTE | 2019-03-20 12:04 | NUR ---
Reassessment: Pt PO 100% meals meeting needs. Skin intact per EMR. LBM x2 03/19. Will continue to monitor. Recommend: 1. Continue heart healthy diet, mechanical soft with ground meats per BRIDGE REPAIR CREW PERSON recs 2. Wt per rx Addendum: 03/20/19 at [address] Amended: Links added.
[2019-03-20 15:00] VITALS: BP 118/64
--- NOTE | 2019-03-20 18:38 | NUR ---
Problems reprioritized. Patient report given, questions answered & plan of care reviewed with KATI Monroe.
[2019-03-20 19:00] VITALS: BP 115/53
[2019-03-20 23:00] VITALS: BP 130/60
[2019-03-21] MEDS: ipratropium/albuterol 3ml nebule NEB SCH ×3 (02:31→15:01)
[2019-03-21 03:00] VITALS: BP 109/55
[2019-03-21 05:13] LABS: ALANINE AMINOTRANSFERASE 50 U/L (12-78); ALBUMIN 2.4 G/DL (3.4-5.0); ALBUMIN/GLOBULIN RATIO 0.6 (1.1-1.5); ALKALINE PHOSPHATASE 101 IU/L (46-116); ANION GAP 7 (8-16); ASPARTATE AMINO TRANSFERASE 21 U/L (10-37); BASOPHILS % (AUTO) 0.3 % (0-1); BILIRUBIN,TOTAL 0.4 MG/DL (0.1-1.0); BLOOD UREA NITROGEN 20 MG/DL (7-18); CALCIUM 8.6 MG/DL (8.5-10.1); CHLORIDE 100 MMOL/L (99-107); CREATININE 1.05 MG/DL (0.60-1.10); EOSINOPHILS # (AUTO) 0.1 X10'3 (0-0.9); EOSINOPHILS % (AUTO) 0.7 % (0-6); GLUCOSE 95 MG/DL (70-104); HEMATOCRIT 37.7 % (42.0-52.0); HEMOGLOBIN 12.6 g/dl (14.0-17.9); LYMPHOCYTES # (AUTO) 1.6 X10'3 (1.1-4.8); LYMPHOCYTES % (AUTO) 15.8 % (21-51); MAGNESIUM 2.5 MG/DL (1.5-2.4); MEAN CORPUSCULAR HEMOGLOBIN 30.8 PG (27.0-31.0); MEAN CORPUSCULAR HGB CONC 33.3 g/dL (33.0-36.5); MEAN CORPUSCULAR VOLUME 92.5 FL (78-98); MEAN PLATELET VOLUME 8.3 FL (7.4-10.4); MONOCYTES # (AUTO) 0.7 X10'3 (0-0.9); MONOCYTES % (AUTO) 6.8 % (2-12); NEUTROPHILS # (AUTO) 7.8 X10'3 (1.8-7.7); NEUTROPHILS % (AUTO) 76.4 % (42-75); PHOSPHORUS 2.7 MG/DL (2.3-4.5); PLATELET COUNT 151 X10'3 (140-440); POTASSIUM 4.4 MMOL/L (3.5-5.1); RED BLOOD COUNT 4.08 X10'6 (4.70-6.10); RED CELL DISTRIBUTION WIDTH 17.2 % (11.5-14.5); SODIUM 135 MMOL/L (135-145); TOTAL CARBON DIOXIDE 28.3 MMOL/L (24-32); TOTAL PROTEIN 6.2 G/DL (6.4-8.2); WHITE BLOOD COUNT 10.3 X10'3 (4.5-11.0); eGFR 72 ML/MIN
[2019-03-21 06:00] VITALS: BP 132/61
--- NOTE | 2019-03-21 06:05 | NUR ---
Patient in room PCU 3028. I have received report from KATI Monroe and had the opportunity to ask questions and assume patient care. Pt sleeping. Will continue to monitor.
[2019-03-21] MEDS: K, MAG and/or Phos replacement - Verify level? MC SCH (07:15)
[2019-03-21] MEDS: pantoprazole 40mg Tablet.DR PO SCH (07:15)
[2019-03-21] MEDS: POTASSIUM BICARB 20meq eff tab 20 MEQ TABLET.EFF PO SCH (07:15)
[2019-03-21] MEDS: digoxin 125mcg (0.125mg) tablet OGT SCH (07:16)
[2019-03-21] MEDS: dabigatran 150mg capsule PO SCH (07:17)
[2019-03-21] MEDS: aspirin 81mg tab.chew OGT SCH (07:17)
[2019-03-21] MEDS: atorvastatin 20mg tablet OGT SCH (07:17)
[2019-03-21] MEDS: amiodarone 200mg tablet OGT SCH (07:17)
[2019-03-21] MEDS: furosemide 40mg tablet PO SCH (07:17)
[2019-03-21] MEDS: levetiracetam 100mg/ml oral solution 5ml UD cup OGT SCH (07:17)
[2019-03-21] MEDS: lactobacillus rhamnosus 10,000 MMU CELLS/CAPSULE PO SCH (07:17)
[2019-03-21] MEDS: predniSONE 20 mg tablet PO SCH (08:30)
[2019-03-21 11:00] VITALS: BP 117/60
[2019-03-21] MEDS ORDERED: FURO40TA4 PO (14:48)
[2019-03-21] MEDS ORDERED: PRED10TA23 PO (14:48)
[2019-03-21] MEDS ORDERED: PANT40TA4 PO (14:48)
[2019-03-21 15:00] VITALS: BP 110/71
--- NOTE | 2019-03-21 16:47 | NUR ---
Pt discharged. Wheeled down to lobby. Tele monitor removed, IV d/c'd, VS stable. All belongings sent home with pt. Pt taken home in taxi.
== END 2019-03-21 16:40 | disposition home or self-care (01) | DRG 871 ==
LOC: ER 18:13 → ICU 2S 20:28 → CMPBEDREQ 22:37 → PCU 3S 03-17 20:22
PROVIDERS: ADMIT Internal Medicine Critical Care Medicine; ATTEND Internal Medicine Critical Care Medicine
PROC: 5A1945Z Respiratory Ventilation, 24-96 Consecutive Hours (ICD-10-PCS; principal; 2019-03-14)
PROC: 5A09357 Assistance with Respiratory Ventilation, Less than 24 Consecutive Hours, Continuous Positive Airway Pressure (ICD-10-PCS; 2019-03-14)
PROC: 0BH17EZ Insertion of Endotracheal Airway into Trachea, Via Natural or Artificial Opening (ICD-10-PCS; 2019-03-14)
PROC: 02HV33Z Insertion of Infusion Device into Superior Vena Cava, Percutaneous Approach (ICD-10-PCS; 2019-03-14)
DX: A41.9 Sepsis, unspecified organism (principal); I21.A1 Myocardial infarction type 2; J96.21 Acute and chronic respiratory failure with hypoxia; J96.22 Acute and chronic respiratory failure with hypercapnia; J18.9 Pneumonia, unspecified organism; I50.22 Chronic systolic (congestive) heart failure; I82.702 Chronic embolism and thrombosis of unspecified veins of left upper extremity; I82.602 Acute embolism and thrombosis of unspecified veins of left upper extremity; I95.9 Hypotension, unspecified; F17.210 Nicotine dependence, cigarettes, uncomplicated; Z60.2 Problems related to living alone; I11.0 Hypertensive heart disease with heart failure; I25.10 Atherosclerotic heart disease of native coronary artery without angina pectoris; J43.9 Emphysema, unspecified; Z95.1 Presence of aortocoronary bypass graft; Z95.0 Presence of cardiac pacemaker; Z88.8 Allergy status to other drugs, medicaments and biological substances; Z79.82 Long term (current) use of aspirin; I25.2 Old myocardial infarction; Z56.0 Unemployment, unspecified; Z79.01 Long term (current) use of anticoagulants
CPT/HCPCS: 36415; 36600; 71045; 80053; 80162; 81001; 82803; 82810; 82948; 83605; 83735; 83880; 84100; 84132; 84145; 84484; 85018; 85025; 85610; 85730; 87040; 87070; 87081; 92508; 92616; 93005; 93971; 94002; 94003; 94640; 94660; 94667; 94668; 94760; 96374; 96375; 97110; 97116; 97162; 97530; 99291; G0378; J1250; J1650; J1815; J1940; J1956; J2060; J2250; J2920; J2930; J3010; J3480; J7512

== ENCOUNTER 2019-09-13 07:00 | Inpatient (IN) | payer MEDICARE, MEDICAID ==
[~2019-09-13] VITALS: Ht 172.7 cm; Wt 69.4 kg
[2019-09-13] VITALS (12 sets, daily range): BP systolic 91–134; BP diastolic 51–80
[~2019-09-13 07:00] MED LIST changes: -AMIO200T40 PO; +AMIO200T61 PO; +DIGO-20 PO; -DIGO125T79 PO; +FURO40TA4 PO; -LEVO750T21 PO; -NITR0.4T51 SL; -OMEP20CA11 PO; +PANT40TA4 PO; -PRED10TA23 PO; -etomidate 2mg/ml inj. ONE; -rocuronium bromide 100mg/10ml (10mg/ml) injection IV ONE; -sod chloride 0.9% 10ml flush syringe IV ONE
--- NOTE | 2019-09-13 07:09 | NUR ---
PT CAME IN EMS. PT WAS BEING BAGGED UPON ARRIVAL. MD, RNS, RT AT BEDSIDE. ETOMIDATE 20 MG. 70 STEFANI GIV Addendum: 09/13/19 at 0711 by LVLASTELIC STEFANI 70 AND ETOM 20 GIVEN 702. PT WAS INTUBATED USING THE GLID SCOPE AT 07. 704 PLACEMENT WAS CONFIRMED.
[2019-09-13] MEDS ORDERED: fentaNYL/PF 50MCG/1 ML 2ML syringe IV PRN ×2 (07:10→09:15)
[2019-09-13] MEDS ORDERED: methylPREDNISolone sod succ 125mg/2ml vial IV ONE (07:10)
--- NOTE | 2019-09-13 07:12 | NUR ---
TEMP RASHID PLACED. MANUAL CYLINDRICAL MIXER 144/72, MONITOR READS 156/88. HR 70 PACED.
[2019-09-13] MEDS ORDERED: sodium bicarbonate (8.4%) inj. 1 MEQ/ML ML IV ONE (07:20)
[2019-09-13 07:21] LABS: ABG OXYGEN SATURATION 98.6 % (95-98); ABG PCO2 (T) 80.3 mmHg (35.0-45.0); ABG PH (T) 6.918 (7.350-7.450); ABG PO2 (T) 254.2 mmHg (83-108); ALLEN'S TEST Positive; FCOHb 2.4 % (0.5-1.5); FMetHb 0.1 % (0.3-1.12); FO2Hb 96.1 % (94-100); MINUTE VOLUME 7 L/min; PEEP 5 cm H2O; RESPIRATORY RATE 14 b/min; TIDAL VOLUME 500 mL; TOTAL HEMOGLOBIN 14.7 G/dl (14.0-17.9)
[2019-09-13] MEDS: midazolam 100mg in NS 100ml 100 ML IV PRN (07:25)
--- NOTE | 2019-09-13 07:30 | NUR ---
VERSED DRIP STARTED
[2019-09-13] MEDS ORDERED: CefTRIAXone/D5W-Rocephin 1gm 50 ML IV ONE (07:35)
[2019-09-13] MEDS ORDERED: azithromycin/NS 500mg/250ml 250 ML IV ONE (07:35)
[2019-09-13] MEDS ORDERED: nitroGLYCERIN-Tridil 50MG/D5W 250 ML IV PRN (07:35)
[2019-09-13] MEDS ORDERED: iohexol 350MG/ML 100ml bottle IV ONE (07:48)
--- NOTE | 2019-09-13 08:30 | NUR ---
VERSED INCREASED TO 3
[2019-09-13] MEDS: normal saline 1000ml 1,000 ML IV SCH ×2 (09:14→23:40)
[2019-09-13] MEDS ORDERED: midazolam 100mg in NS 100ml 100 ML IV PRN (09:14)
[2019-09-13] MEDS ORDERED: ipratropium/albuterol 3ml nebule NEB PRN (09:15)
[2019-09-13] MEDS ORDERED: potassium Cl 20 mEq SR tablet PO PRN (09:15)
[2019-09-13] MEDS ORDERED: ondansetron/PF 4mg/2ml inj IV PRN (09:15)
[2019-09-13] MEDS ORDERED: potassium Cl 20mEq/100mL bag 100 ML IV PRN ×2 (09:15)
[2019-09-13] MEDS ORDERED: midazolam 2 mg/2 ml injection IV ONE (09:15)
[2019-09-13] MEDS ORDERED: potassium CL 10mEq/100ml bag 100 ML IV PRN ×2 (09:15)
[2019-09-13] MEDS ORDERED: acetaminophen 325mg tablet PO PRN ×2 (09:15)
[2019-09-13] MEDS ORDERED: CefTRIAXone/D5W-Rocephin 1gm 50 ML IV SCH (09:15)
[2019-09-13] MEDS ORDERED: magnesium hydroxide 30ml (MOM) UD suspension PO PRN (09:15)
[2019-09-13] MEDS ORDERED: azithromycin/NS 500mg/250ml 250 ML IV SCH (09:15)
[2019-09-13] MEDS ORDERED: tPA-cathflo 2 MG/2 ml IV flush ONE (09:24)
--- NOTE | 2019-09-13 09:36 | NUR ---
DR MORTON AT BEDSIDE
[2019-09-13 09:44] LABS: BASOPHILS # (AUTO) 0.1 X10'3 (0-0.2); BASOPHILS % (AUTO) 0.5 % (0-1); EOSINOPHILS # (AUTO) 0.5 X10'3 (0-0.9); EOSINOPHILS % (AUTO) 2.5 % (0-6); HEMOGLOBIN 14.2 g/dl (14.0-17.9); LYMPHOCYTES # (AUTO) 1.6 X10'3 (1.1-4.8); LYMPHOCYTES % (AUTO) 8.6 % (21-51); MEAN CORPUSCULAR HEMOGLOBIN 32.4 PG (27.0-31.0); MEAN CORPUSCULAR HGB CONC 33.1 g/dL (33.0-36.5); MEAN CORPUSCULAR VOLUME 97.8 FL (78-98); MEAN PLATELET VOLUME 8.7 FL (7.4-10.4); MONOCYTES # (AUTO) 0.6 X10'3 (0-0.9); NEUTROPHILS % (AUTO) 85.4 % (42-75); PLATELET COUNT 242 X10'3 (140-440); RED CELL DISTRIBUTION WIDTH 15.1 % (11.5-14.5); WHITE BLOOD COUNT 18.7 X10'3 (4.5-11.0)
[2019-09-13] MEDS: piperacillin/tazo 4.5gm/100ml 100 ML IV SCH ×3 (09:47→23:40)
[2019-09-13] MEDS: FENTANYL-0.9 % NACL/PF 100 ML IV PRN ×2 (10:01→17:31)
[2019-09-13 10:05] LABS: ALANINE AMINOTRANSFERASE 35 U/L (12-78); ALBUMIN 2.9 G/DL (3.4-5.0); ALBUMIN/GLOBULIN RATIO 0.7 (1.1-1.5); ALKALINE PHOSPHATASE 156 IU/L (46-116); ANION GAP 6 (8-16); ASPARTATE AMINO TRANSFERASE 50 U/L (10-37); BILIRUBIN,TOTAL 0.5 MG/DL (0.1-1.0); BLOOD UREA NITROGEN 20 MG/DL (7-18); BUN/CREATININE RATIO 14.6 (5.4-32.0); CHLORIDE 105 MMOL/L (99-107); CREATININE 1.37 MG/DL (0.60-1.10); GLUCOSE 254 MG/DL (70-104); POTASSIUM 5.4 MMOL/L (3.5-5.1); SODIUM 139 MMOL/L (135-145); TOTAL CARBON DIOXIDE 27.6 MMOL/L (24-32); TOTAL PROTEIN 6.9 G/DL (6.4-8.2); eGFR 53 ML/MIN
--- NOTE | 2019-09-13 10:24 | NUR ---
VERSED INCREASED TO 4
--- NOTE | 2019-09-13 10:54 | NUR ---
VERSED AT 2 FENT 50. NITRO OFF
[2019-09-13] MEDS: ipratropium/albuterol 3ml nebule NEB SCH ×4 (11:00→22:40)
--- NOTE | 2019-09-13 11:08 | NUR ---
VERSED 3 AND FENT 100
[2019-09-13] MEDS ORDERED: iohexol 300 MG/1 ML 50ml polymer ONE (11:31)
[2019-09-13] MEDS ORDERED: normal saline 1000ml 1,000 ML IV ONE (13:40)
[2019-09-13] MEDS ORDERED: rocuronium 10mg/ml inj IV ONE (14:00)
[2019-09-13] MEDS ORDERED: etomidate 2mg/ml inj. ONE (14:00)
[2019-09-13] MEDS ORDERED: sodium bicarbonate (8.4%) 1 mEq/ml syringe ONE (14:00)
[2019-09-13] MEDS: methylPREDNISolone sod succ 125mg/2ml vial IV SCH ×2 (14:57→20:16)
[2019-09-13 15:41] LABS: ABG BASE EXCESS -5.1 mmol/L (-2.0-3.0); ABG OXYGEN SATURATION 98.7 % (95-98); ABG PCO2 (T) 32.7 mmHg (35.0-45.0); ABG PH (T) 7.382 (7.350-7.450); ABG PO2 (T) 136.1 mmHg (83-108); ALLEN'S TEST Positive; FCOHb 1.1 % (0.5-1.5); FMetHb 0.2 % (0.3-1.12); FO2Hb 97.4 % (94-100); PEEP 5 cm H2O; RESPIRATORY RATE 20 b/min; RESPIRATORY RATE (OBSERVED) 20 b/min; TIDAL VOLUME 500 mL; TOTAL HEMOGLOBIN 14.2 G/dl (14.0-17.9)
[2019-09-13] MEDS ORDERED: FURO40TA4 PO (15:58)
[2019-09-13] MEDS ORDERED: PANT40TA4 PO (15:58)
[2019-09-13] MEDS ORDERED: CARV6.253 PO (15:59)
[2019-09-13] MEDS ORDERED: ipratropium 0.5 MG/2.5ML nebule IH PRN (18:05)
--- NOTE | 2019-09-13 18:31 | NUR ---
Report given to KATI Louis
--- NOTE | 2019-09-13 18:32 | NUR ---
Patient in room ICU 2042. I have received report from Tessa PARIKH and had the opportunity to ask questions and assume patient care.
[2019-09-13] MEDS: carvedilol 6.25mg tablet PO SCH (19:56)
[2019-09-13] MEDS: furosemide 40mg tablet PO SCH (20:00)
[2019-09-13] MEDS ORDERED: dabigatran 150mg capsule PO SCH (20:00)
[2019-09-13] MEDS: levetiracetam 250mg tablet PO SCH (20:14)
[2019-09-13] MEDS: famotidine/PF 10 mg/ml inj IV SCH (20:14)
[2019-09-13] MEDS: pantoprazole 40mg Tablet.DR PO SCH (20:14)
[2019-09-13] MEDS: VANCOMYCIN 1gm/H2O 200ml PB 200 ML IV SCH (20:17)
--- NOTE | 2019-09-13 20:33 | NUR ---
i spoke with Kenyon Hicks at this time regarding inability to to give pardaxa due to inabliity to crush/open medication. he gave order to hold pardaxa dose until extubated/and to start heparin SQ 5000units. orders entered continue to monitor.
[2019-09-13] MEDS: heparin, porcine 5000 units/ml vial SQ SCH (20:42)
[2019-09-13 21:36] LABS: OXYGEN SATURATION (MIXED VEN) 63.3 % (60-80); PO2 MIXED VENOUS (TEMP COR) 34.4 mmHg (35-46)
[2019-09-13 22:09] LABS: TROPONIN I 0.09 NG/ML (0.0-0.05)
[2019-09-14] VITALS (24 sets, daily range): BP systolic 11–131; BP diastolic 45–98
[2019-09-14] MEDS: methylPREDNISolone sod succ 125mg/2ml vial IV SCH ×4 (02:28→21:00)
[2019-09-14] MEDS: ipratropium/albuterol 3ml nebule NEB SCH ×6 (02:36→20:28)
[2019-09-14 02:42] LABS: BASOPHILS % (AUTO) 0.2 % (0-1); EOSINOPHILS % (AUTO) 0 % (0-6); HEMATOCRIT 37.4 % (42.0-52.0); HEMOGLOBIN 12.6 g/dl (14.0-17.9); LYMPHOCYTES # (AUTO) 0.4 X10'3 (1.1-4.8); LYMPHOCYTES % (AUTO) 5.6 % (21-51); MEAN CORPUSCULAR HEMOGLOBIN 33.2 PG (27.0-31.0); MEAN CORPUSCULAR HGB CONC 33.6 g/dL (33.0-36.5); MEAN CORPUSCULAR VOLUME 98.7 FL (78-98); MEAN PLATELET VOLUME 8.7 FL (7.4-10.4); MONOCYTES # (AUTO) 0.2 X10'3 (0-0.9); MONOCYTES % (AUTO) 2.9 % (2-12); NEUTROPHILS # (AUTO) 7.1 X10'3 (1.8-7.7); NEUTROPHILS % (AUTO) 91.3 % (42-75); PLATELET COUNT 146 X10'3 (140-440); RED BLOOD COUNT 3.79 X10'6 (4.70-6.10); RED CELL DISTRIBUTION WIDTH 14.6 % (11.5-14.5); WHITE BLOOD COUNT 7.8 X10'3 (4.5-11.0)
[2019-09-14 02:49] LABS: ALANINE AMINOTRANSFERASE 36 U/L (12-78); ALBUMIN 2.7 G/DL (3.4-5.0); ALBUMIN/GLOBULIN RATIO 0.8 (1.1-1.5); ALKALINE PHOSPHATASE 108 IU/L (46-116); ANION GAP 5 (8-16); ASPARTATE AMINO TRANSFERASE 32 U/L (10-37); BILIRUBIN,TOTAL 0.5 MG/DL (0.1-1.0); BLOOD UREA NITROGEN 19 MG/DL (7-18); BUN/CREATININE RATIO 18.3 (5.4-32.0); CALCIUM 8.1 MG/DL (8.5-10.1); CHLORIDE 112 MMOL/L (99-107); CREATININE 1.04 MG/DL (0.60-1.10); GLUCOSE 128 MG/DL (70-104); MAGNESIUM 1.7 MG/DL (1.5-2.4); PHOSPHORUS 4.1 MG/DL (2.3-4.5); POTASSIUM 4.2 MMOL/L (3.5-5.1); SODIUM 144 MMOL/L (135-145); TOTAL CARBON DIOXIDE 27.5 MMOL/L (24-32); eGFR 73 ML/MIN
[2019-09-14 03:50] LABS: ABG BASE EXCESS -4.7 mmol/L (-2.0-3.0); ABG HCO3 20.1 mmol/L (22.0-26.0); ABG OXYGEN SATURATION 92.3 % (95-98); ABG PCO2 (T) 35.6 mmHg (35.0-45.0); ABG PH (T) 7.367 (7.350-7.450); ABG PO2 (T) 65.6 mmHg (83-108); ALLEN'S TEST Positive; FCOHb 0.8 % (0.5-1.5); FMetHb 0.3 % (0.3-1.12); FO2Hb 91.3 % (94-100); MINUTE VOLUME 6 L/min; PATIENT TEMPERATURE 36.5; PEEP 5 cm H2O; RESPIRATORY RATE 18 b/min; RESPIRATORY RATE (OBSERVED) 18 b/min; TIDAL VOLUME 500 mL; TOTAL HEMOGLOBIN 13.4 G/dl (14.0-17.9)
[2019-09-14] MEDS: midazolam 100mg in NS 100ml 100 ML IV PRN (04:05)
--- NOTE | 2019-09-14 06:37 | NUR ---
Problems reprioritized. Patient report given, questions answered & plan of care reviewed with Tessa PARIKH.
[2019-09-14] MEDS: carvedilol 6.25mg tablet PO SCH ×2 (08:00→20:59)
[2019-09-14] MEDS: furosemide 40mg tablet PO SCH ×2 (08:00→20:59)
[2019-09-14] MEDS ORDERED: enoxaparin 40mg/0.4ml syringe SUBCUT SCH (08:00)
[2019-09-14] MEDS: lisinopril 5mg tablet PO SCH (08:00)
[2019-09-14] MEDS: VANCOMYCIN 1gm/H2O 200ml PB 200 ML IV SCH ×2 (08:10→20:58)
[2019-09-14] MEDS: piperacillin/tazo 4.5gm/100ml 100 ML IV SCH ×2 (08:10→16:59)
[2019-09-14] MEDS: famotidine/PF 10 mg/ml inj IV SCH ×2 (08:11→20:59)
[2019-09-14] MEDS: atorvastatin 20mg tablet PO SCH (08:11)
[2019-09-14] MEDS: amiodarone 200mg tablet PO SCH (08:11)
[2019-09-14] MEDS: levetiracetam 250mg tablet PO SCH ×2 (08:11→20:59)
[2019-09-14] MEDS: aspirin 81mg tablet.DR PO SCH (08:12)
[2019-09-14] MEDS: mineral oil/petrolatum ophthal oint EACHEYE SCH ×2 (08:13→20:59)
[2019-09-14] MEDS: pantoprazole 40mg Tablet.DR PO SCH ×2 (08:13→20:58)
[2019-09-14] MEDS: heparin, porcine 5000 units/ml vial SQ SCH ×2 (08:13→21:00)
[2019-09-14] MEDS: digoxin 125mcg (0.125mg) tablet PO SCH (08:19)
--- NOTE | 2019-09-14 11:24 | NUR ---
Initial: Pt admit with acute and chronic respiratory failure and COPD exacerbation. Pt required intubation this morning. TF recommendations below calculated to meet 100% of patient's estimated nutrient needs if prolonged intubation and pt to receive nutrition support. [facility] 09/13. Will continue to follow closely. Recommendations: 1) If prolonged intubation and to receive TF, continuous Vital AF with goal rate of 70 mL/hr 2) If TF, additional 200 mL water flush Q4H 3) If TF, prealbumin q /; daily weights 4) PO diet advancement to heart healthy as medically indicated following extubation 5) Routine bowel care Addendum: 09/14/19 at [address] Amended: Links added.
[2019-09-14] MEDS ORDERED: racepinephrine 11.25mg/0.5ml nebule NEB PRN (13:00)
[2019-09-14] MEDS ORDERED: ipratropium/albuterol 3ml nebule NEB PRN (13:00)
[2019-09-14] MEDS: normal saline 1000ml 1,000 ML IV SCH (14:22)
--- NOTE | 2019-09-14 18:20 | NUR ---
Patient in room ICU 2042. I have received report from kassy gutierrez and had the opportunity to ask questions and assume patient care.
--- NOTE | 2019-09-14 19:20 | NUR ---
pt is A&O x 4. pt is calm and cooperative. pt is on 5LPM NC while eating. Lung sounds are clear throughout with equal bilateral chest rise and fall. bowel sounds present in all 4 quadrants. no bm today per patient. salmeron is patent and draining. heels, elbows, coccyx intact blanchable free from breakdown. pt reports pain in toe nails. toe nails are long brown and thick. possibly needs a referral to a cloth layer. vitals signs are stable. respirations even and unlabored. will continue to monitor
[2019-09-14] MEDS: lactobacillus rhamnosus 10,000 MMU CELLS/CAPSULE PO SCH (20:58)
--- NOTE | 2019-09-14 21:00 | NUR ---
salmeron catheter removed. pt tolerated the procedure well. will continue to monitor
--- NOTE | 2019-09-14 21:26 | NUR ---
pt requested to get up to the commode to have a bm. pt is a one person assist. pt passed gas, no bm
[2019-09-15] VITALS (20 sets, daily range): BP systolic 104–133; BP diastolic 42–64
[2019-09-15] MEDS: normal saline 1000ml 1,000 ML IV SCH (01:21)
[2019-09-15] MEDS: piperacillin/tazo 4.5gm/100ml 100 ML IV SCH ×4 (01:21→23:40)
[2019-09-15] MEDS: mineral oil/petrolatum ophthal oint EACHEYE SCH ×3 (02:00→11:37)
[2019-09-15] MEDS: ipratropium/albuterol 3ml nebule NEB SCH ×8 (02:12→20:29)
[2019-09-15 02:45] LABS: BASOPHILS % (AUTO) 0.1 % (0-1); EOSINOPHILS % (AUTO) 0 % (0-6); HEMATOCRIT 34.3 % (42.0-52.0); HEMOGLOBIN 11.5 g/dl (14.0-17.9); LYMPHOCYTES # (AUTO) 0.4 X10'3 (1.1-4.8); LYMPHOCYTES % (AUTO) 3.4 % (21-51); MEAN CORPUSCULAR HEMOGLOBIN 32.7 PG (27.0-31.0); MEAN CORPUSCULAR HGB CONC 33.6 g/dL (33.0-36.5); MEAN CORPUSCULAR VOLUME 97.2 FL (78-98); MEAN PLATELET VOLUME 8.4 FL (7.4-10.4); MONOCYTES # (AUTO) 0.5 X10'3 (0-0.9); NEUTROPHILS # (AUTO) 12.1 X10'3 (1.8-7.7); NEUTROPHILS % (AUTO) 92.5 % (42-75); PLATELET COUNT 155 X10'3 (140-440); RED BLOOD COUNT 3.53 X10'6 (4.70-6.10); RED CELL DISTRIBUTION WIDTH 14.9 % (11.5-14.5); WHITE BLOOD COUNT 13.1 X10'3 (4.5-11.0)
[2019-09-15] MEDS: methylPREDNISolone sod succ 125mg/2ml vial IV SCH ×2 (02:52→09:03)
[2019-09-15 03:07] LABS: ALANINE AMINOTRANSFERASE 30 U/L (12-78); ALBUMIN 2.6 G/DL (3.4-5.0); ALBUMIN/GLOBULIN RATIO 0.8 (1.1-1.5); ALKALINE PHOSPHATASE 86 IU/L (46-116); ANION GAP 8 (8-16); ASPARTATE AMINO TRANSFERASE 20 U/L (10-37); BILIRUBIN,TOTAL 0.4 MG/DL (0.1-1.0); BLOOD UREA NITROGEN 19 MG/DL (7-18); BUN/CREATININE RATIO 16.8 (5.4-32.0); CALCIUM 7.9 MG/DL (8.5-10.1); CHLORIDE 110 MMOL/L (99-107); CREATININE 1.13 MG/DL (0.60-1.10); GLUCOSE 138 MG/DL (70-104); PHOSPHORUS 2.3 MG/DL (2.3-4.5); POTASSIUM 3.9 MMOL/L (3.5-5.1); SODIUM 142 MMOL/L (135-145); TOTAL CARBON DIOXIDE 24.2 MMOL/L (24-32); eGFR 66 ML/MIN
--- NOTE | 2019-09-15 03:38 | NUR ---
Correct documentation done by Marissa RN
--- NOTE | 2019-09-15 06:30 | NUR ---
Received report from off going RN.
[2019-09-15] MEDS: lisinopril 5mg tablet PO SCH (08:00)
[2019-09-15] MEDS: pantoprazole 40mg Tablet.DR PO SCH ×2 (08:00→19:42)
[2019-09-15] MEDS ORDERED: VANCOMYCIN LEVEL IV ONE (08:30)
[2019-09-15] MEDS ORDERED: midazolam 100mg in NS 100ml 100 ML IV PRN (08:52)
[2019-09-15] MEDS: heparin, porcine 5000 units/ml vial SQ SCH ×2 (09:03→19:42)
[2019-09-15] MEDS: VANCOMYCIN 1gm/H2O 200ml PB 200 ML IV SCH (09:03)
[2019-09-15] MEDS: lactobacillus rhamnosus 10,000 MMU CELLS/CAPSULE PO SCH ×2 (09:04→19:41)
[2019-09-15] MEDS: atorvastatin 20mg tablet PO SCH (09:04)
[2019-09-15] MEDS: amiodarone 200mg tablet PO SCH (09:04)
[2019-09-15] MEDS: levetiracetam 250mg tablet PO SCH ×2 (09:05→19:42)
[2019-09-15] MEDS: furosemide 40mg tablet PO SCH ×2 (09:05→19:41)
[2019-09-15] MEDS: famotidine/PF 10 mg/ml inj IV SCH (09:05)
[2019-09-15] MEDS: carvedilol 6.25mg tablet PO SCH ×2 (09:05→19:41)
[2019-09-15] MEDS: digoxin 125mcg (0.125mg) tablet PO SCH (09:05)
[2019-09-15] MEDS: aspirin 81mg tablet.DR PO SCH (09:09)
--- NOTE | 2019-09-15 11:39 | NUR ---
Reassessment: Pt has been extubated. Per PMH pt reports 30 lb wt loss in two months. Per documented wt hx pt weighed 68.4 kg using bed scale in March of last year, current documented wt is 69.4 kg also taken with bed scale. Pt s/p BSS this morning with ST recs mechanical soft food with thin liquids d/t pt with slow chewing d/t absence of teeth. PO diet has been advanced to [facility] soft heart healthy CHO controlled and pt documented with 100% PO intake meeting nutrient needs. Pt with no edema or significant decrease in muscle strength. Pt currently does not meet criteria for malnutrition. D/w dietary to send double protein BIDLD for satiety. LBM 09/14. Will continue to follow. Recommendations: 1) Consider removal of CHO controlled diet given no hx DM 2) Continue [facility] soft heart healthy diet per ST recs 3) Double protein BIDLD for satiety 4) Routine bowel care 5) Wt per rx Addendum: 09/15/19 at [address] Amended: Links added.
[2019-09-15] MEDS: methylPREDNISolone sod succ/PF 40mg inj. IV SCH ×2 (15:00→19:42)
--- NOTE | 2019-09-15 17:37 | NUR ---
Called report to barker operator.
--- NOTE | 2019-09-15 17:48 | NUR ---
Patient in room ICU 2042. I have received report from Tessa PARIKH and had the opportunity to ask questions and assume patient care.
--- NOTE | 2019-09-15 17:58 | NUR ---
Patient arrived to PCU from ICU. Patient oriented to room and call light. Vital signs taken and within normal limits. Patient resting and in no signs of distress.
--- NOTE | 2019-09-15 18:13 | NUR ---
Patient transferred to room 3016A via wheelchair, attached to satellite project site monitor, and all belongings. Receiving nurse at bedside to help transfer patient to hospital bed.
[2019-09-15] MEDS: varenicline tartrate 0.5mg tablet PO SCH (19:42)
[2019-09-15] MEDS: VANCOmycin 1250MG/NS 250ml Bag 250 ML IV SCH (21:55)
[2019-09-16 02:00] VITALS: BP 128/56
[2019-09-16] MEDS: methylPREDNISolone sod succ/PF 40mg inj. IV SCH ×3 (02:13→13:50)
[2019-09-16] MEDS: ipratropium/albuterol 3ml nebule NEB SCH ×3 (03:00→21:00)
[2019-09-16 06:05] LABS: BASOPHILS % (AUTO) 0.1 % (0-1); EOSINOPHILS % (AUTO) 0 % (0-6); HEMOGLOBIN 11.5 g/dl (14.0-17.9); LYMPHOCYTES # (AUTO) 0.3 X10'3 (1.1-4.8); LYMPHOCYTES % (AUTO) 2.8 % (21-51); MEAN CORPUSCULAR HEMOGLOBIN 32.9 PG (27.0-31.0); MEAN CORPUSCULAR HGB CONC 33.9 g/dL (33.0-36.5); MEAN CORPUSCULAR VOLUME 97.2 FL (78-98); MEAN PLATELET VOLUME 8.7 FL (7.4-10.4); MONOCYTES # (AUTO) 0.4 X10'3 (0-0.9); MONOCYTES % (AUTO) 3.8 % (2-12); NEUTROPHILS # (AUTO) 10.3 X10'3 (1.8-7.7); NEUTROPHILS % (AUTO) 93.3 % (42-75); PLATELET COUNT 165 X10'3 (140-440); RED CELL DISTRIBUTION WIDTH 14.5 % (11.5-14.5)
--- NOTE | 2019-09-16 06:13 | NUR ---
Problems reprioritized. Patient report given, questions answered & plan of care reviewed with Tracie PARIKH. Patient stable at time of transfer of care.
--- NOTE | 2019-09-16 06:48 | NUR ---
Patient in room PCU 3016. I have received report from KATI Michel and had the opportunity to ask questions and assume patient care. Patient asleep in bed and in no acute distress.
[2019-09-16 06:53] LABS: ALANINE AMINOTRANSFERASE 6 U/L (12-78); ALKALINE PHOSPHATASE 63 IU/L (46-116); ANION GAP 8 (8-16); ASPARTATE AMINO TRANSFERASE 15 U/L (10-37); BILIRUBIN,TOTAL 0.4 MG/DL (0.1-1.0); BLOOD UREA NITROGEN 24 MG/DL (7-18); BUN/CREATININE RATIO 17.4 (5.4-32.0); CHLORIDE 111 MMOL/L (99-107); CREATININE 1.38 MG/DL (0.60-1.10); GLUCOSE 131 MG/DL (70-104); MAGNESIUM 2.1 MG/DL (1.5-2.4); PHOSPHORUS 5.2 MG/DL (2.3-4.5); POTASSIUM 3.3 MMOL/L (3.5-5.1); SODIUM 147 MMOL/L (135-145); TOTAL CARBON DIOXIDE 27.6 MMOL/L (24-32); TOTAL PROTEIN 6.1 G/DL (6.4-8.2); eGFR 52 ML/MIN
[2019-09-16 07:00] VITALS: BP 134/54
[2019-09-16 07:07] LABS: ALBUMIN 2.9 G/DL (3.4-5.0); ALBUMIN/GLOBULIN RATIO 0.9 (1.1-1.5)
[2019-09-16] MEDS: pantoprazole 40mg Tablet.DR PO SCH ×2 (08:10→21:17)
[2019-09-16] MEDS: digoxin 125mcg (0.125mg) tablet PO SCH (08:11)
[2019-09-16] MEDS: atorvastatin 20mg tablet PO SCH (08:11)
[2019-09-16] MEDS: furosemide 40mg tablet PO SCH ×2 (08:12→21:19)
[2019-09-16] MEDS: levetiracetam 250mg tablet PO SCH ×2 (08:12→21:18)
[2019-09-16] MEDS: amiodarone 200mg tablet PO SCH (08:13)
[2019-09-16] MEDS: lactobacillus rhamnosus 10,000 MMU CELLS/CAPSULE PO SCH ×2 (08:13→21:17)
[2019-09-16] MEDS: lisinopril 5mg tablet PO SCH (08:13)
[2019-09-16] MEDS: carvedilol 6.25mg tablet PO SCH ×2 (08:13→21:19)
[2019-09-16] MEDS: aspirin 81mg tablet.DR PO SCH (08:13)
[2019-09-16] MEDS: varenicline tartrate 0.5mg tablet PO SCH ×2 (08:13→21:22)
[2019-09-16] MEDS: potassium Cl 20 mEq SR tablet PO PRN ×3 (08:14→21:19)
[2019-09-16] MEDS: heparin, porcine 5000 units/ml vial SQ SCH ×2 (08:15→21:33)
[2019-09-16] MEDS: piperacillin/tazo 4.5gm/100ml 100 ML IV SCH ×3 (08:15→23:50)
[2019-09-16 11:00] VITALS: BP 129/68
[2019-09-16] MEDS: VANCOmycin 1250MG/NS 250ml Bag 250 ML IV SCH ×2 (12:21→21:17)
[2019-09-16 15:00] VITALS: BP 112/52
[2019-09-16 18:00] VITALS: BP 140/50
--- NOTE | 2019-09-16 18:25 | NUR ---
Problems reprioritized. Patient report given, questions answered & plan of care reviewed with KATI Hollingsworth. Patient stable at transfer of care.
--- NOTE | 2019-09-16 18:30 | NUR ---
Patient in room PCU 3016. I have received report from Tracie PARIKH and had the opportunity to ask questions and assume patient care.
[2019-09-16 22:00] VITALS: BP 136/55
[2019-09-17 02:00] VITALS: BP 139/58
[2019-09-17] MEDS: ipratropium/albuterol 3ml nebule NEB SCH ×3 (03:00→14:00)
--- NOTE | 2019-09-17 06:22 | NUR ---
Patient in room PCU 3016. I have received report from KATI Hollingsworth and had the opportunity to ask questions and assume patient care. Patient awake in bed and in no acute distress.
[2019-09-17 07:00] VITALS: BP 155/61
--- NOTE | 2019-09-17 07:14 | NUR ---
Problems reprioritized. Patient report given, questions answered & plan of care reviewed with Tracie PARIKH.
[2019-09-17] MEDS: atorvastatin 20mg tablet PO SCH (07:19)
[2019-09-17] MEDS: piperacillin/tazo 4.5gm/100ml 100 ML IV SCH (07:19)
[2019-09-17] MEDS: pantoprazole 40mg Tablet.DR PO SCH (07:20)
[2019-09-17] MEDS: lactobacillus rhamnosus 10,000 MMU CELLS/CAPSULE PO SCH (07:20)
[2019-09-17] MEDS: furosemide 40mg tablet PO SCH (07:20)
[2019-09-17] MEDS: digoxin 125mcg (0.125mg) tablet PO SCH (07:20)
[2019-09-17] MEDS: carvedilol 6.25mg tablet PO SCH (07:20)
[2019-09-17] MEDS: aspirin 81mg tablet.DR PO SCH (07:20)
[2019-09-17] MEDS: levetiracetam 250mg tablet PO SCH (07:20)
[2019-09-17] MEDS: varenicline tartrate 0.5mg tablet PO SCH (07:21)
[2019-09-17] MEDS: amiodarone 200mg tablet PO SCH (07:21)
[2019-09-17] MEDS: lisinopril 5mg tablet PO SCH (07:21)
[2019-09-17] MEDS: heparin, porcine 5000 units/ml vial SQ SCH (07:23)
--- NOTE | 2019-09-17 07:31 | NUR ---
Patient refused heparin shot this morning.
[2019-09-17] MEDS ORDERED: predniSONE 20 mg tablet PO SCH (08:00)
[2019-09-17] MEDS ORDERED: VANCOMYCIN LEVEL IV ONE ×2 (08:30→20:30)
[2019-09-17 11:00] VITALS: BP 95/64
[2019-09-17] MEDS ORDERED: PRED5TAB PO ×2 (12:27→13:04)
[2019-09-17] MEDS: VANCOmycin 1250MG/NS 250ml Bag 250 ML IV SCH (12:29)
--- NOTE | 2019-09-17 12:31 | NUR ---
Vanco administered late due to patient on Zosyn running
[2019-09-17] MEDS ORDERED: DOXY100C2 PO (13:00)
--- NOTE | 2019-09-17 14:20 | NUR ---
Patient stable for discharge per MD orders. All discharge instructions reviewed with patient and all questions answered. New prescriptions called into [facility]. PIV discontinued and cannula intact. traffic monitor specialist discontinued. Belongings collected and sent with patient. Patient wheeled down to lobby and picked up by [employer].
--- NOTE | 2019-09-21 09:24 | NUR ---
Case Management DC follow up: LM/VM for pt/caregiver to call back back w/questions/concerns, post DC status
== END 2019-09-17 14:48 | disposition home or self-care (01) | DRG 208 ==
LOC: ER 07:00 → ED HOLD 09:14 → ICU 2S 11:35 → PCU 3S 09-15 18:11 → UNDODISIN 09-16 14:55
PROVIDERS: ADMIT Internal Medicine Critical Care Medicine; ATTEND Internal Medicine Critical Care Medicine
PROC: 5A1945Z Respiratory Ventilation, 24-96 Consecutive Hours (ICD-10-PCS; principal; 2019-09-13)
PROC: 0BH17EZ Insertion of Endotracheal Airway into Trachea, Via Natural or Artificial Opening (ICD-10-PCS; 2019-09-13)
PROC: B3251ZZ Computerized Tomography (CT Scan) of Bilateral Common Carotid Arteries using Low Osmolar Contrast (ICD-10-PCS; 2019-09-13)
PROC: B3201ZZ Computerized Tomography (CT Scan) of Thoracic Aorta using Low Osmolar Contrast (ICD-10-PCS; 2019-09-13)
PROC: B32S1ZZ Computerized Tomography (CT Scan) of Right Pulmonary Artery using Low Osmolar Contrast (ICD-10-PCS; 2019-09-13)
PROC: B32T1ZZ Computerized Tomography (CT Scan) of Left Pulmonary Artery using Low Osmolar Contrast (ICD-10-PCS; 2019-09-13)
PROC: B4201ZZ Computerized Tomography (CT Scan) of Abdominal Aorta using Low Osmolar Contrast (ICD-10-PCS; 2019-09-13)
PROC: B4241ZZ Computerized Tomography (CT Scan) of Superior Mesenteric Artery using Low Osmolar Contrast (ICD-10-PCS; 2019-09-13)
PROC: 02HV33Z Insertion of Infusion Device into Superior Vena Cava, Percutaneous Approach (ICD-10-PCS; 2019-09-13)
DX: J96.22 Acute and chronic respiratory failure with hypercapnia (principal); J18.9 Pneumonia, unspecified organism; I42.9 Cardiomyopathy, unspecified; E87.2 Acidosis; J96.21 Acute and chronic respiratory failure with hypoxia; I11.0 Hypertensive heart disease with heart failure; I25.2 Old myocardial infarction; Z60.2 Problems related to living alone; I50.9 Heart failure, unspecified; I73.9 Peripheral vascular disease, unspecified; J43.9 Emphysema, unspecified; F17.210 Nicotine dependence, cigarettes, uncomplicated; I25.10 Atherosclerotic heart disease of native coronary artery without angina pectoris; Z95.1 Presence of aortocoronary bypass graft; Z98.61 Coronary angioplasty status; Z88.8 Allergy status to other drugs, medicaments and biological substances; Z79.899 Other long term (current) drug therapy; Z79.82 Long term (current) use of aspirin; Z95.0 Presence of cardiac pacemaker
CPT/HCPCS: 31500; 36415; 36556; 36600; 70450; 71045; 71275; 74174; 80053; 80162; 80202; 82803; 82810; 82948; 83605; 83735; 83880; 84100; 84145; 84484; 85018; 85025; 87040; 87070; 87081; 92508; 92616; 93005; 94002; 94003; 94640; 94668; 94760; 96365; 96375; 97110; 97112; 97116; 97161; 97530; 99291; G0378; J0456; J0696; J1644; J2250; J2543; J2920; J2930; J2997; J3010; J3370; J3490; J7030; J7512; Q9967

== ENCOUNTER → 2019-11-23 | Emergency (ER) | payer MEDICARE, MEDICAID ==
[~2019-11-23] VITALS: Ht 180.3 cm; Wt 80.0 kg
[~2019-11-23] MED LIST changes: +CARV6.253 PO; +PRED5TAB PO
[2019-11-23 13:59] VITALS: BP 144/83
--- NOTE | 2019-11-23 14:57 | NUR ---
LEFT WITHOUT BEING SEEN.
== END | disposition left against medical advice (07) ==
LOC: ER 13:48
DX: R10.9 Unspecified abdominal pain (principal); Z53.21 Procedure and treatment not carried out due to patient leaving prior to being seen by health care provider

== ENCOUNTER 2021-03-07 15:56 | Emergency (ER) | payer MEDICARE, MEDICAID ==
[~2021-03-07] VITALS: Ht 185.4 cm; Wt 69.1 kg
[~2021-03-07 15:56] MED LIST changes: +ADV50250 IH; +ALB0.5UD IH; -AMIO200T61 PO; +AZI25OT PO; -DIGO-20 PO; +DILT30TA10 PO; +FURO20TA4 PO; -FURO40TA4 PO; +GUAI-422 PO; +LEVO25CA4 PO; -LISI-604 PO; +LISI20TA28 PO; -PANT40TA4 PO; -PRED5TAB PO; +SPIR25TA PO; -UMEC1DIS PO
[2021-03-07] MEDS ORDERED: dexamethasone sod phosphate 10mg/ml inj IV STA (16:22)
[2021-03-07] MEDS ORDERED: lisinopril 10 MG tablet PO ONE ×3 (16:25→17:15)
[2021-03-07] MEDS ORDERED: albuterol 2.5 MG/3 ML nebule NEB ONE (16:25)
[2021-03-07 16:50] LABS: BASOPHILS # (AUTO) 0.1 X10'3 (0-0.2); BASOPHILS % (AUTO) 1.2 % (0-1); EOSINOPHILS # (AUTO) 0.2 X10'3 (0-0.9); EOSINOPHILS % (AUTO) 3.7 % (0-6); HEMATOCRIT 37.3 % (42.0-52.0); HEMOGLOBIN 12.2 g/dl (14.0-17.9); LYMPHOCYTES # (AUTO) 1.1 X10'3 (1.1-4.8); LYMPHOCYTES % (AUTO) 17.5 % (21-51); MEAN CORPUSCULAR HEMOGLOBIN 32.8 PG (27.0-31.0); MEAN CORPUSCULAR HGB CONC 32.8 g/dL (33.0-36.5); MEAN PLATELET VOLUME 7.4 FL (7.4-10.4); MONOCYTES # (AUTO) 0.7 X10'3 (0-0.9); MONOCYTES % (AUTO) 12.1 % (2-12); NEUTROPHILS % (AUTO) 65.5 % (42-75); PLATELET COUNT 143 X10'3 (140-440); RED BLOOD COUNT 3.72 X10'6 (4.70-6.10); RED CELL DISTRIBUTION WIDTH 15.7 % (11.5-14.5); WHITE BLOOD COUNT 6.2 X10'3 (4.5-11.0)
[2021-03-07 17:47] LABS: ALANINE AMINOTRANSFERASE 22 U/L (12-78); ALBUMIN 3.6 G/DL (3.4-5.0); ALBUMIN/GLOBULIN RATIO 0.9 (1.1-1.5); ALKALINE PHOSPHATASE 90 IU/L (46-116); ANION GAP 9 (8-16); ASPARTATE AMINO TRANSFERASE 18 U/L (10-37); BILIRUBIN,TOTAL 0.9 MG/DL (0.1-1.0); BLOOD UREA NITROGEN 11 MG/DL (7-18); BUN/CREATININE RATIO 10.3 (5.4-32.0); CALCIUM 8.9 MG/DL (8.5-10.1); CHLORIDE 106 MMOL/L (99-107); CREATININE 1.07 MG/DL (0.60-1.10); GLUCOSE 100 MG/DL (70-104); POTASSIUM 4.4 MMOL/L (3.5-5.1); SODIUM 141 MMOL/L (135-145); TOTAL CARBON DIOXIDE 25.7 MMOL/L (24-32); TOTAL PROTEIN 7.6 G/DL (6.4-8.2); eGFR 70 ML/MIN
[2021-03-07 18:13] VITALS: BP 115/69
== END 2021-03-07 21:05 | disposition home or self-care (01) ==
LOC: ER 15:57
DX: T67.9XXA Effect of heat and light, unspecified, initial encounter (principal); J44.1 Chronic obstructive pulmonary disease with (acute) exacerbation; R06.02 Shortness of breath; R07.89 Other chest pain; I25.10 Atherosclerotic heart disease of native coronary artery without angina pectoris; I11.0 Hypertensive heart disease with heart failure; I50.9 Heart failure, unspecified; I25.2 Old myocardial infarction; F17.200 Nicotine dependence, unspecified, uncomplicated; Z86.69 Personal history of other diseases of the nervous system and sense organs; Z95.0 Presence of cardiac pacemaker; Z98.890 Other specified postprocedural states; Z90.89 Acquired absence of other organs; Z72.89 Other problems related to lifestyle; Z60.2 Problems related to living alone; Z56.0 Unemployment, unspecified; Z88.8 Allergy status to other drugs, medicaments and biological substances; Z79.82 Long term (current) use of aspirin; Z79.2 Long term (current) use of antibiotics; Z79.899 Other long term (current) drug therapy; X30.XXXA Exposure to excessive natural heat, initial encounter; Y93.89 Activity, other specified; Y92.89 Other specified places as the place of occurrence of the external cause; Y99.8 Other external cause status
CPT/HCPCS: 36415; 71045; 80053; 85025; 93005; 94640; 96374; 99285; J1100; 94760

== ENCOUNTER 2021-03-19 05:36 | Emergency (ER) | payer MEDICARE, MEDICAID ==
[~2021-03-19] VITALS: Ht 172.7 cm; Wt 69.5 kg
[~2021-03-19 05:36] MED LIST changes: -ADV50250 IH
[2021-03-19 06:13] LABS: BASOPHILS # (AUTO) 0.1 X10'3 (0-0.2); BASOPHILS % (AUTO) 0.8 % (0-1); EOSINOPHILS # (AUTO) 0.2 X10'3 (0-0.9); EOSINOPHILS % (AUTO) 2.8 % (0-6); HEMATOCRIT 42.3 % (42.0-52.0); HEMOGLOBIN 13.9 g/dl (14.0-17.9); LYMPHOCYTES # (AUTO) 1.7 X10'3 (1.1-4.8); LYMPHOCYTES % (AUTO) 22.4 % (21-51); MEAN CORPUSCULAR HEMOGLOBIN 32.9 PG (27.0-31.0); MEAN CORPUSCULAR VOLUME 99.8 FL (78-98); MEAN PLATELET VOLUME 8.1 FL (7.4-10.4); MONOCYTES # (AUTO) 0.9 X10'3 (0-0.9); MONOCYTES % (AUTO) 11.2 % (2-12); NEUTROPHILS # (AUTO) 4.9 X10'3 (1.8-7.7); NEUTROPHILS % (AUTO) 62.8 % (42-75); PLATELET COUNT 223 X10'3 (140-440); RED BLOOD COUNT 4.24 X10'6 (4.70-6.10); RED CELL DISTRIBUTION WIDTH 15.7 % (11.5-14.5); WHITE BLOOD COUNT 7.7 X10'3 (4.5-11.0)
[2021-03-19 06:25] LABS: ALANINE AMINOTRANSFERASE 31 U/L (12-78); ALBUMIN 3.2 G/DL (3.4-5.0); ALBUMIN/GLOBULIN RATIO 0.8 (1.1-1.5); ALKALINE PHOSPHATASE 93 IU/L (46-116); ANION GAP 12 (8-16); ASPARTATE AMINO TRANSFERASE 32 U/L (10-37); BILIRUBIN,TOTAL 0.6 MG/DL (0.1-1.0); BLOOD UREA NITROGEN 15 MG/DL (7-18); CALCIUM 8.3 MG/DL (8.5-10.1); CHLORIDE 108 MMOL/L (99-107); GLUCOSE 236 MG/DL (70-104); POTASSIUM 4.8 MMOL/L (3.5-5.1); SODIUM 141 MMOL/L (135-145); TOTAL CARBON DIOXIDE 20.9 MMOL/L (24-32); eGFR 76 ML/MIN
[2021-03-19] MEDS ORDERED: albuterol 2.5 MG/3 ML nebule CONTNEB PRN (07:40)
[2021-03-19] MEDS ORDERED: azithromycin 250mg tablet PO ONE (07:45)
[2021-03-19 09:25] VITALS: BP 97/74
[2021-03-19] MEDS ORDERED: AZIT-63 PO (09:48)
== END 2021-03-19 10:01 | disposition home or self-care (01) ==
LOC: ER 05:36
DX: R07.89 Other chest pain (principal); J44.1 Chronic obstructive pulmonary disease with (acute) exacerbation; I11.0 Hypertensive heart disease with heart failure; I50.9 Heart failure, unspecified; J18.9 Pneumonia, unspecified organism; F17.210 Nicotine dependence, cigarettes, uncomplicated; I48.91 Unspecified atrial fibrillation; G40.909 Epilepsy, unspecified, not intractable, without status epilepticus; I25.10 Atherosclerotic heart disease of native coronary artery without angina pectoris; I25.2 Old myocardial infarction; Z95.5 Presence of coronary angioplasty implant and graft; Z95.0 Presence of cardiac pacemaker; Z72.89 Other problems related to lifestyle; Z56.0 Unemployment, unspecified; Z88.8 Allergy status to other drugs, medicaments and biological substances; Z79.82 Long term (current) use of aspirin; Z79.2 Long term (current) use of antibiotics; Z79.899 Other long term (current) drug therapy
CPT/HCPCS: 36415; 71045; 80053; 83880; 84484; 85025; 93005; 94640; 94760; 99285; 99406

== ENCOUNTER 2021-04-08 06:30 | Emergency (ER) | payer MEDICARE, MEDICAID ==
[~2021-04-08] VITALS: Ht 185.4 cm; Wt 69.5 kg
[~2021-04-08 06:30] MED LIST changes: +AZIT-63 PO
[2021-04-08] MEDS ORDERED: predniSONE 20 mg tablet PO ONE (07:55)
[2021-04-08] MEDS ORDERED: ipratropium/albuterol 3ml nebule NEB ONE (07:55)
[2021-04-08 08:24] LABS: BASOPHILS # (AUTO) 0.1 X10'3 (0-0.2); BASOPHILS % (AUTO) 1.1 % (0-1); EOSINOPHILS # (AUTO) 0.1 X10'3 (0-0.9); EOSINOPHILS % (AUTO) 1.2 % (0-6); HEMATOCRIT 38.9 % (42.0-52.0); HEMOGLOBIN 12.6 g/dl (14.0-17.9); LYMPHOCYTES # (AUTO) 0.7 X10'3 (1.1-4.8); LYMPHOCYTES % (AUTO) 7.6 % (21-51); MEAN CORPUSCULAR HEMOGLOBIN 31.1 PG (27.0-31.0); MEAN CORPUSCULAR HGB CONC 32.3 g/dL (33.0-36.5); MEAN CORPUSCULAR VOLUME 96.3 FL (78-98); MEAN PLATELET VOLUME 7.7 FL (7.4-10.4); MONOCYTES # (AUTO) 1.1 X10'3 (0-0.9); MONOCYTES % (AUTO) 12.7 % (2-12); NEUTROPHILS # (AUTO) 6.7 X10'3 (1.8-7.7); NEUTROPHILS % (AUTO) 77.4 % (42-75); PLATELET COUNT 252 X10'3 (140-440); RED BLOOD COUNT 4.04 X10'6 (4.70-6.10); WHITE BLOOD COUNT 8.6 X10'3 (4.5-11.0)
[2021-04-08] MEDS ORDERED: diltiazem 30mg tablet PO ONE (08:35)
[2021-04-08] MEDS ORDERED: carvedilol 6.25mg tablet PO ONE (08:35)
[2021-04-08 08:37] LABS: ALANINE AMINOTRANSFERASE 302 U/L (12-78); ALBUMIN 3.2 G/DL (3.4-5.0); ALBUMIN/GLOBULIN RATIO 0.8 (1.1-1.5); ALKALINE PHOSPHATASE 140 IU/L (46-116); ANION GAP 12 (8-16); ASPARTATE AMINO TRANSFERASE 253 U/L (10-37); BILIRUBIN,TOTAL 0.7 MG/DL (0.1-1.0); BLOOD UREA NITROGEN 13 MG/DL (7-18); BUN/CREATININE RATIO 12.4 (5.4-32.0); CALCIUM 8.3 MG/DL (8.5-10.1); CHLORIDE 108 MMOL/L (99-107); CREATININE 1.05 MG/DL (0.60-1.10); GLUCOSE 113 MG/DL (70-104); POTASSIUM 4.4 MMOL/L (3.5-5.1); SODIUM 144 MMOL/L (135-145); TOTAL CARBON DIOXIDE 23.9 MMOL/L (24-32); TOTAL PROTEIN 7.1 G/DL (6.4-8.2); eGFR 72 ML/MIN
[2021-04-08 08:45] LABS: TROPONIN I < 0.04 NG/ML (0.0-0.05)
[2021-04-08] MEDS ORDERED: ALB0.5UD IH (08:57)
[2021-04-08] MEDS ORDERED: PRED20TA PO (08:57)
[2021-04-08 10:37] VITALS: BP 119/91
== END 2021-04-08 10:45 | disposition home or self-care (01) ==
LOC: ER 06:31
DX: J45.901 Unspecified asthma with (acute) exacerbation (principal); Z20.822 Contact with and (suspected) exposure to COVID-19; R74.01 Elevation of levels of liver transaminase levels; I50.9 Heart failure, unspecified; F17.210 Nicotine dependence, cigarettes, uncomplicated; I48.91 Unspecified atrial fibrillation; Z88.8 Allergy status to other drugs, medicaments and biological substances; Z79.82 Long term (current) use of aspirin; Z79.899 Other long term (current) drug therapy; G40.909 Epilepsy, unspecified, not intractable, without status epilepticus; I25.10 Atherosclerotic heart disease of native coronary artery without angina pectoris; I11.0 Hypertensive heart disease with heart failure; I25.2 Old myocardial infarction; Z95.5 Presence of coronary angioplasty implant and graft; Z95.0 Presence of cardiac pacemaker; Z56.0 Unemployment, unspecified; Z72.89 Other problems related to lifestyle; Z71.6 Tobacco abuse counseling
CPT/HCPCS: 36415; 71045; 80053; 83880; 84484; 85025; 87081; 87635; 93005; 94640; 99285; 99406; C9803; J7512; 94760

== ENCOUNTER 2021-07-08 09:18 | Emergency (ER) | payer MEDICARE, MEDICAID ==
[~2021-07-08] VITALS: Ht 185.4 cm; Wt 65.9 kg
[~2021-07-08 09:18] MED LIST changes: -ALB0.5UD IH; +ALBU8.5H17 IH; -ASPI-1009 PO; +ATOR-2 PO; -ATOR40TA PO; -AZI25OT PO; -AZIT-63 PO; -CARV6.253 PO; -DILT30TA10 PO; -FURO20TA4 PO; -GUAI-422 PO; +IPRA3AMP9 IH; +LEVE750T PO; -LEVE750T6 PO; -LEVO25CA4 PO; +LISI10TA27 PO; -LISI20TA28 PO; +PANT40SU2 PO; -SPIR25TA PO; +UMEC1DIS PO
[2021-07-08] MEDS ORDERED: aspirin 81mg tab.chew PO ONE (09:20)
[2021-07-08] MEDS ORDERED: diltiazem 5mg/ml 5ml inj. IV ONE (09:50)
[2021-07-08] MEDS ORDERED: carvedilol 6.25mg tablet PO SCH (09:55)
[2021-07-08] MEDS ORDERED: amiodarone 200mg tablet PO ONE (09:55)
[2021-07-08] MEDS ORDERED: CARV-49 PO (09:57)
[2021-07-08 10:04] LABS: BASOPHILS # (AUTO) 0.1 X10'3 (0-0.2); BASOPHILS % (AUTO) 1.2 % (0-1); EOSINOPHILS # (AUTO) 0.1 X10'3 (0-0.9); EOSINOPHILS % (AUTO) 1.5 % (0-6); HEMATOCRIT 37.8 % (42.0-52.0); HEMOGLOBIN 11.7 g/dl (14.0-17.9); LYMPHOCYTES # (AUTO) 1.5 X10'3 (1.1-4.8); LYMPHOCYTES % (AUTO) 19.4 % (21-51); MEAN CORPUSCULAR HEMOGLOBIN 26.1 PG (27.0-31.0); MEAN CORPUSCULAR HGB CONC 30.9 g/dL (33.0-36.5); MEAN CORPUSCULAR VOLUME 84.6 FL (78-98); MEAN PLATELET VOLUME 7.5 FL (7.4-10.4); MONOCYTES # (AUTO) 1.2 X10'3 (0-0.9); MONOCYTES % (AUTO) 15.6 % (2-12); NEUTROPHILS % (AUTO) 62.3 % (42-75); PLATELET COUNT 263 X10'3 (140-440); RED BLOOD COUNT 4.47 X10'6 (4.70-6.10)
[2021-07-08 10:27] LABS: ALANINE AMINOTRANSFERASE 19 U/L (12-78); ALBUMIN 3.2 G/DL (3.4-5.0); ALBUMIN/GLOBULIN RATIO 0.8 (1.1-1.5); ALKALINE PHOSPHATASE 82 IU/L (46-116); ANION GAP 10 (8-16); ASPARTATE AMINO TRANSFERASE 20 U/L (10-37); BILIRUBIN,TOTAL 1.2 MG/DL (0.1-1.0); BLOOD UREA NITROGEN 12 MG/DL (7-18); BUN/CREATININE RATIO 9.5 (5.4-32.0); CALCIUM 9.1 MG/DL (8.5-10.1); CHLORIDE 107 MMOL/L (99-107); CREATININE 1.26 MG/DL (0.60-1.10); GLUCOSE 174 MG/DL (70-104); POTASSIUM 4.9 MMOL/L (3.5-5.1); SODIUM 143 MMOL/L (135-145); TOTAL CARBON DIOXIDE 26.1 MMOL/L (24-32); TOTAL PROTEIN 7.3 G/DL (6.4-8.2); eGFR 58 ML/MIN
[2021-07-08 10:28] LABS: ANISOCYTOSIS 3+; PLATELET ESTIMATE NORMAL
[2021-07-08 10:29] LABS: BURR CELLS 1+; ELLIPTOCYTES 1+; HYPOCHROMASIA 1+; SCHISTOCYTES FEW
[2021-07-08 10:30] LABS: ACANTHOCYTES FEW
[2021-07-08 10:33] LABS: MAGNESIUM 2.2 MG/DL (1.5-2.4)
--- NOTE | 2021-07-08 11:54 | NUR ---
FRIEND JORGE SKAGGS [phone].
[2021-07-08 13:56] VITALS: BP 113/81
--- NOTE | 2021-07-09 18:18 | NUR ---
PT CALLED TO NOTIFY HIM THAT HE LEFT HIS CHANTEX HERE IN THE ER WHEN HE WAS DC ON 07/08/21. NO ANSWER, MSG LEFT TO CALL BACK
== END 2021-07-08 14:22 | disposition home or self-care (01) ==
LOC: ER 09:19
DX: I48.20 Chronic atrial fibrillation, unspecified (principal); J44.1 Chronic obstructive pulmonary disease with (acute) exacerbation; I11.0 Hypertensive heart disease with heart failure; I50.9 Heart failure, unspecified; I25.10 Atherosclerotic heart disease of native coronary artery without angina pectoris; F17.210 Nicotine dependence, cigarettes, uncomplicated; G40.909 Epilepsy, unspecified, not intractable, without status epilepticus; E78.00 Pure hypercholesterolemia, unspecified; I25.2 Old myocardial infarction; Z95.5 Presence of coronary angioplasty implant and graft; Z95.0 Presence of cardiac pacemaker; Z72.89 Other problems related to lifestyle; Z56.0 Unemployment, unspecified; Z88.8 Allergy status to other drugs, medicaments and biological substances; Z79.899 Other long term (current) drug therapy
CPT/HCPCS: 36415; 71045; 80053; 83605; 83735; 83880; 84145; 84484; 85008; 85025; 87040; 93005; 96374; 99284; J3490

== ENCOUNTER 2021-07-19 10:02 | Emergency (ER) | payer MEDICARE, MEDICAID ==
[~2021-07-19] VITALS: Ht 182.9 cm; Wt 65.0 kg
[~2021-07-19 10:02] MED LIST changes: +CARV-49 PO
[2021-07-19 10:28] VITALS: BP 160/115
== END 2021-07-19 18:53 | disposition left against medical advice (07) ==
LOC: ER 10:02
DX: T24.012A Burn of unspecified degree of left thigh, initial encounter (principal); Z53.21 Procedure and treatment not carried out due to patient leaving prior to being seen by health care provider; X08.8XXA Exposure to other specified smoke, fire and flames, initial encounter; Y93.9 Activity, unspecified; Y92.9 Unspecified place or not applicable; Y99.9 Unspecified external cause status

== ENCOUNTER 2021-07-22 07:02 | Emergency (ER) | payer MEDICARE, MEDICAID ==
[~2021-07-22] VITALS: Ht 182.9 cm; Wt 63.6 kg
[2021-07-22 07:19] LABS: HEMOGLOBIN 11.8 g/dl (14.0-17.9); MEAN CORPUSCULAR HEMOGLOBIN 25.1 PG (27.0-31.0); MEAN CORPUSCULAR HGB CONC 30.2 g/dL (33.0-36.5); MEAN CORPUSCULAR VOLUME 83.2 FL (78-98); MEAN PLATELET VOLUME 7.7 FL (7.4-10.4); NEUTROPHILS % (AUTO) 65.3 % (42-75); PLATELET COUNT 257 X10'3 (140-440); RED BLOOD COUNT 4.69 X10'6 (4.70-6.10); RED CELL DISTRIBUTION WIDTH 21.8 % (11.5-14.5); WHITE BLOOD COUNT 9.5 X10'3 (4.5-11.0)
[2021-07-22 07:20] LABS: BASOPHILS # (AUTO) 0.1 X10'3 (0-0.2); BASOPHILS % (AUTO) 1.5 % (0-1); EOSINOPHILS # (AUTO) 0.2 X10'3 (0-0.9); EOSINOPHILS % (AUTO) 2.2 % (0-6); LYMPHOCYTES # (AUTO) 1.7 X10'3 (1.1-4.8); LYMPHOCYTES % (AUTO) 17.8 % (21-51); MONOCYTES # (AUTO) 1.2 X10'3 (0-0.9); MONOCYTES % (AUTO) 13.2 % (2-12); NEUTROPHILS # (AUTO) 6.2 X10'3 (1.8-7.7)
[2021-07-22] MEDS ORDERED: aspirin 81mg tab.chew PO ONE (07:25)
[2021-07-22] MEDS ORDERED: carvedilol 6.25mg tablet PO ONE (07:25)
[2021-07-22 07:39] LABS: ALANINE AMINOTRANSFERASE 16 U/L (12-78); ALBUMIN 3.4 G/DL (3.4-5.0); ALBUMIN/GLOBULIN RATIO 0.8 (1.1-1.5); ALKALINE PHOSPHATASE 86 IU/L (46-116); ANION GAP 16 (8-16); ASPARTATE AMINO TRANSFERASE 20 U/L (10-37); BILIRUBIN,TOTAL 1.6 MG/DL (0.1-1.0); BLOOD UREA NITROGEN 8 MG/DL (7-18); BUN/CREATININE RATIO 6.5 (5.4-32.0); CALCIUM 8.8 MG/DL (8.5-10.1); CHLORIDE 102 MMOL/L (99-107); CREATININE 1.24 MG/DL (0.60-1.10); GLUCOSE 152 MG/DL (70-104); POTASSIUM 4.6 MMOL/L (3.5-5.1); SODIUM 138 MMOL/L (135-145); TOTAL CARBON DIOXIDE 19.7 MMOL/L (24-32); TOTAL PROTEIN 7.7 G/DL (6.4-8.2); eGFR 59 ML/MIN
[2021-07-22 07:56] LABS: HEMATOCRIT 35.5 % (42.0-52.0)
[2021-07-22 08:37] LABS: ANISOCYTOSIS 3+; MICROCYTOSIS 1+; PLATELET ESTIMATE NORMAL
[2021-07-22 08:38] LABS: ACANTHOCYTES FEW; BURR CELLS FEW
[2021-07-22 08:39] LABS: ELLIPTOCYTES 1+; POLYCHROMASIA 1+
[2021-07-22] MEDS ORDERED: ipratropium/albuterol 3ml nebule NEB ONE (08:45)
[2021-07-22] MEDS ORDERED: IPRA3AMP9 IH (10:11)
[2021-07-22] MEDS ORDERED: CARV-49 PO (10:11)
[2021-07-22] MEDS ORDERED: PRED20TA PO (10:11)
[2021-07-22 10:36] VITALS: BP 101/77
--- NOTE | 2021-07-22 10:56 | NUR ---
kay bonilla [phone] please call with update when available
--- NOTE | 2021-07-22 11:51 | NUR ---
[facility] WAS CALLED, ETA 60MIN
== END 2021-07-22 11:52 | disposition home or self-care (01) ==
LOC: ER 07:03
DX: J44.1 Chronic obstructive pulmonary disease with (acute) exacerbation (principal); R07.89 Other chest pain; R50.9 Fever, unspecified; R06.02 Shortness of breath; R05.9 Cough, unspecified; I48.91 Unspecified atrial fibrillation; I25.10 Atherosclerotic heart disease of native coronary artery without angina pectoris; I11.0 Hypertensive heart disease with heart failure; I50.9 Heart failure, unspecified; E78.00 Pure hypercholesterolemia, unspecified; I25.2 Old myocardial infarction; J45.909 Unspecified asthma, uncomplicated; Z86.69 Personal history of other diseases of the nervous system and sense organs; Z95.0 Presence of cardiac pacemaker; Z90.89 Acquired absence of other organs; Z98.890 Other specified postprocedural states; Z72.89 Other problems related to lifestyle; Z60.2 Problems related to living alone; Z56.0 Unemployment, unspecified; Z88.8 Allergy status to other drugs, medicaments and biological substances; Z79.899 Other long term (current) drug therapy
CPT/HCPCS: 36415; 71045; 80053; 83880; 84484; 85008; 85025; 93005; 94640; 94760; 99285

== ENCOUNTER 2021-09-16 10:51 | Emergency (ER) | payer MEDICARE, MEDICAID ==
[~2021-09-16] VITALS: Ht 185.4 cm; Wt 67.3 kg
[~2021-09-16 10:51] MED LIST changes: +AMIO200T27 PO; -CARV-49 PO; +CARV6.253 PO; +FLO0.4C PO; -IPRA3AMP9 IH; +LEVE250T PO; -LEVE750T PO; -PANT40SU2 PO; +tamsulosin capsule PO
[2021-09-16 12:19] VITALS: BP 114/65
--- NOTE | 2021-09-16 12:40 | NUR ---
SIMON SOCAL WORKER SPOKE WITH DR BANG REGARDING DISCHARGING PT HOME
--- NOTE | 2021-09-16 12:46 | NUR ---
per [facility] rhiannon, do not order any chest pain protocol as pt will be discharged back home.
--- NOTE | 2021-09-16 14:19 | NUR ---
attempted to call pt brother jaison to arrange pt transport home. no answer and left voicemail.
== END 2021-09-16 16:15 | disposition home or self-care (01) ==
LOC: ER 10:52
DX: R07.89 Other chest pain (principal); J44.9 Chronic obstructive pulmonary disease, unspecified; G40.909 Epilepsy, unspecified, not intractable, without status epilepticus; I48.91 Unspecified atrial fibrillation; I25.10 Atherosclerotic heart disease of native coronary artery without angina pectoris; E78.00 Pure hypercholesterolemia, unspecified; I11.0 Hypertensive heart disease with heart failure; I50.9 Heart failure, unspecified; I25.2 Old myocardial infarction; J43.9 Emphysema, unspecified; F17.200 Nicotine dependence, unspecified, uncomplicated; Z95.5 Presence of coronary angioplasty implant and graft; Z95.0 Presence of cardiac pacemaker; Z72.89 Other problems related to lifestyle; Z76.0 Encounter for issue of repeat prescription; Z79.899 Other long term (current) drug therapy
CPT/HCPCS: 93005; 99283

== ENCOUNTER 2021-10-12 00:53 | Emergency (ER) | payer MEDICARE, MEDICAID ==
[~2021-10-12] VITALS: Ht 185.4 cm; Wt 64.0 kg
[~2021-10-12 00:53] MED LIST changes: +ALBU8HFA PO; +AMIO200T61 PO; +ASPI81TA53 PO; -FLO0.4C PO; +IPRA3AMP9 IH; +LACT1CAP26 PO; +LEVE750T PO; +LEVO500T90 PO; +PANT40SU2 PO; +PRED10TA23 PO
--- NOTE | 2021-10-12 07:12 | NUR ---
DR. LEONARDO AT BEDSIDE.
--- NOTE | 2021-10-12 09:00 | NUR ---
CERTIFIED ATHLETIC TRAINER AT BEDSIDE.
[2021-10-12 09:15] VITALS: BP 110/77
--- NOTE | 2021-10-12 12:17 | NUR ---
provided with oxygen from [place] [facility] for home.
== END 2021-10-12 12:21 | disposition home or self-care (01) ==
LOC: ER 00:54
DX: R06.02 Shortness of breath (principal); I48.91 Unspecified atrial fibrillation; I25.10 Atherosclerotic heart disease of native coronary artery without angina pectoris; I11.0 Hypertensive heart disease with heart failure; I50.9 Heart failure, unspecified; E78.00 Pure hypercholesterolemia, unspecified; I25.2 Old myocardial infarction; J45.909 Unspecified asthma, uncomplicated; J43.9 Emphysema, unspecified; Z86.69 Personal history of other diseases of the nervous system and sense organs; Z95.0 Presence of cardiac pacemaker; Z98.890 Other specified postprocedural states; Z72.89 Other problems related to lifestyle; Z60.2 Problems related to living alone; Z56.0 Unemployment, unspecified; Z88.8 Allergy status to other drugs, medicaments and biological substances; Z79.899 Other long term (current) drug therapy
CPT/HCPCS: 99284

== ENCOUNTER 2021-10-14 10:30 | Emergency (ER) | payer MEDICARE, MEDICAID ==
[~2021-10-14] VITALS: Ht 185.4 cm; Wt 140.0 kg
--- NOTE | 2021-10-14 10:45 | NUR ---
Pt is a very difficult IV start.
[2021-10-14 11:26] LABS: BASOPHILS # (AUTO) 0.1 X10'3 (0-0.2); BASOPHILS % (AUTO) 1.1 % (0-1); EOSINOPHILS # (AUTO) 0.2 X10'3 (0-0.9); EOSINOPHILS % (AUTO) 2.8 % (0-6); HEMATOCRIT 31.4 % (42.0-52.0); HEMOGLOBIN 9.3 g/dl (14.0-17.9); LYMPHOCYTES # (AUTO) 0.6 X10'3 (1.1-4.8); LYMPHOCYTES % (AUTO) 8.8 % (21-51); MEAN CORPUSCULAR HEMOGLOBIN 24.1 PG (27.0-31.0); MEAN CORPUSCULAR HGB CONC 29.5 g/dL (33.0-36.5); MEAN CORPUSCULAR VOLUME 81.6 FL (78-98); MEAN PLATELET VOLUME 7.8 FL (7.4-10.4); MONOCYTES # (AUTO) 1.1 X10'3 (0-0.9); MONOCYTES % (AUTO) 15.6 % (2-12); NEUTROPHILS % (AUTO) 71.7 % (42-75); PLATELET COUNT 242 X10'3 (140-440); RED BLOOD COUNT 3.85 X10'6 (4.70-6.10); RED CELL DISTRIBUTION WIDTH 22.6 % (11.5-14.5)
[2021-10-14 11:39] LABS: ALANINE AMINOTRANSFERASE 62 U/L (12-78); ALBUMIN 3.2 G/DL (3.4-5.0); ALBUMIN/GLOBULIN RATIO 0.8 (1.1-1.5); ALKALINE PHOSPHATASE 96 IU/L (46-116); ANION GAP 7 (8-16); ASPARTATE AMINO TRANSFERASE 55 U/L (10-37); BILIRUBIN,TOTAL 2.5 MG/DL (0.1-1.0); BLOOD UREA NITROGEN 22 MG/DL (7-18); BUN/CREATININE RATIO 21.4 (5.4-32.0); CALCIUM 8.7 MG/DL (8.5-10.1); CHLORIDE 105 MMOL/L (99-107); CREATININE 1.03 MG/DL (0.60-1.10); POTASSIUM 5.4 MMOL/L (3.5-5.1); SODIUM 138 MMOL/L (135-145); TOTAL CARBON DIOXIDE 26.5 MMOL/L (24-32); TOTAL PROTEIN 7.4 G/DL (6.4-8.2); eGFR 73 ML/MIN
[2021-10-14 11:40] LABS: GLUCOSE 102 MG/DL (70-104)
[2021-10-14 11:50] LABS: ANISOCYTOSIS 3+; ELLIPTOCYTES 1+; PLATELET ESTIMATE NORMAL
[2021-10-14 11:51] LABS: LARGE PLATELETS FEW
[2021-10-14 11:52] LABS: ACANTHOCYTES FEW; HYPOCHROMASIA 1+; MICROCYTOSIS 1+
[2021-10-14 14:00] VITALS: BP 133/96
--- NOTE | 2021-10-14 14:10 | NUR ---
Gait test: Pt was only able to ambulate 30ft. Escorted by to his room via wheelchair.
--- NOTE | 2021-10-14 17:15 | NUR ---
Pt given and understands d/c instructions. IV d/c'd, catheter was intact.
== END 2021-10-14 17:38 | disposition home or self-care (01) ==
LOC: ER 10:31
DX: J44.9 Chronic obstructive pulmonary disease, unspecified (principal); R50.9 Fever, unspecified; R07.81 Pleurodynia; I25.2 Old myocardial infarction; I48.91 Unspecified atrial fibrillation; G43.909 Migraine, unspecified, not intractable, without status migrainosus; I25.10 Atherosclerotic heart disease of native coronary artery without angina pectoris; I11.0 Hypertensive heart disease with heart failure; I50.9 Heart failure, unspecified; E78.00 Pure hypercholesterolemia, unspecified; Z99.81 Dependence on supplemental oxygen; Z95.5 Presence of coronary angioplasty implant and graft; Z95.0 Presence of cardiac pacemaker; Z72.89 Other problems related to lifestyle; Z56.0 Unemployment, unspecified; Z79.82 Long term (current) use of aspirin; Z79.899 Other long term (current) drug therapy
CPT/HCPCS: 36415; 71045; 80053; 83880; 84484; 85008; 85025; 93005; 99285

== ENCOUNTER 2021-10-28 20:21 | Inpatient (IN) | payer MEDICARE, MEDICAID ==
[~2021-10-28] VITALS: Ht 185.4 cm; Wt 63.6 kg
[~2021-10-28 20:21] MED LIST changes: -LEVO500T90 PO
[2021-10-28 22:06] LABS: BASOPHILS # (AUTO) 0.1 X10'3 (0-0.2); EOSINOPHILS # (AUTO) 0.5 X10'3 (0-0.9); HEMATOCRIT 32.9 % (42.0-52.0); HEMOGLOBIN 9.2 g/dl (14.0-17.9); LYMPHOCYTES # (AUTO) 1.3 X10'3 (1.1-4.8); LYMPHOCYTES % (AUTO) 17.1 % (21-51); MEAN CORPUSCULAR VOLUME 82.3 FL (78-98); MEAN PLATELET VOLUME 8.2 FL (7.4-10.4); MONOCYTES # (AUTO) 1.7 X10'3 (0-0.9); MONOCYTES % (AUTO) 22.7 % (2-12); NEUTROPHILS % (AUTO) 53.2 % (42-75); PLATELET COUNT 151 X10'3 (140-440); RED CELL DISTRIBUTION WIDTH 22.4 % (11.5-14.5); WHITE BLOOD COUNT 7.6 X10'3 (4.5-11.0)
[2021-10-28 22:24] LABS: ALANINE AMINOTRANSFERASE 211 U/L (12-78); ALBUMIN 3.2 G/DL (3.4-5.0); ALBUMIN/GLOBULIN RATIO 0.8 (1.1-1.5); ALKALINE PHOSPHATASE 145 IU/L (46-116); ANION GAP 15 (8-16); ASPARTATE AMINO TRANSFERASE 281 U/L (10-37); BILIRUBIN,TOTAL 2.3 MG/DL (0.1-1.0); BLOOD UREA NITROGEN 16 MG/DL (7-18); BUN/CREATININE RATIO 13.9 (5.4-32.0); CALCIUM 8.8 MG/DL (8.5-10.1); CHLORIDE 104 MMOL/L (99-107); CREATININE 1.15 MG/DL (0.60-1.10); SODIUM 140 MMOL/L (135-145); eGFR 64 ML/MIN
[2021-10-28 22:25] LABS: GLUCOSE 101 MG/DL (70-104); POTASSIUM 5.9 MMOL/L (3.5-5.1)
--- NOTE | 2021-10-28 22:38 | NUR ---
DR BARRAZA AWARE OF PT'S CRITICAL TROPONIN RESULTS
[2021-10-28] MEDS ORDERED: aspirin 81mg tab.chew PO ONE (22:45)
[2021-10-28] MEDS ORDERED: normal saline 1000ml 1,000 ML IV ONE (22:45)
[2021-10-28] MEDS ORDERED: heparin 25,000 UNIT/250ml bag 250 ML IV SCH (22:45)
[2021-10-28] MEDS ORDERED: nitroGLYCERIN 0.2mg/hour patch TD ONE (22:45)
[2021-10-28] MEDS ORDERED: amiodarone 150mg/dext, iso-os 100 ML IV ONE (22:45)
[2021-10-28] MEDS ORDERED: heparin 10,000 units/1 ML INJ IV ONE (22:45)
[2021-10-28] MEDS ORDERED: heparin 10,000 units/1 ML INJ IV PRN (22:55)
[2021-10-28] MEDS ORDERED: carVEDilol 3.125mg tablet PO ONE (23:15)
[2021-10-28 23:57] LABS: C-REACTIVE PROTEIN 2.58 MG/DL (0.0-0.5); ETHANOL < 0.010 GM/DL (0.0-0.010); MAGNESIUM 2.2 MG/DL (1.5-2.4)
[2021-10-29] VITALS (15 sets, daily range): BP systolic 71–139; BP diastolic 32–87
[2021-10-29 00:26] LABS: ANISOCYTOSIS 3+; PLATELET ESTIMATE NORMAL
[2021-10-29 00:26] LABS: APTT 27 SECONDS (22-32)
[2021-10-29 00:27] LABS: HYPOCHROMASIA 1+
[2021-10-29 00:28] LABS: ACANTHOCYTES FEW; ELLIPTOCYTES FEW
[2021-10-29 00:29] LABS: BURR CELLS 1+; LARGE PLATELETS FEW; MICROCYTOSIS FEW
[2021-10-29 00:34] LABS: NUCLEATED RED BLOOD CELLS 1 /100WBC (0-0); TOTAL CELLS COUNTED 100
[2021-10-29] MEDS ORDERED: acetaminophen 325mg tablet PO PRN (00:40)
[2021-10-29] MEDS ORDERED: magnesium 4gm in 100ml NS 100 ML IV PRN (00:40)
[2021-10-29] MEDS ORDERED: magnesium hydroxide 30ml (MOM) UD suspension PO PRN (00:40)
[2021-10-29] MEDS ORDERED: potassium CL 10mEq/100ml bag 100 ML IV PRN (00:40)
[2021-10-29] MEDS ORDERED: magnesium Cl slow-release 64mg tablet PO PRN (00:40)
[2021-10-29] MEDS ORDERED: potassium Cl 20 mEq SR tablet PO PRN ×2 (00:40)
[2021-10-29] MEDS ORDERED: magnesium 2GM in 50ml NS 50 ML IV PRN (00:40)
[2021-10-29] MEDS ORDERED: ondansetron/PF 4mg/2ml inj IV PRN (00:40)
[2021-10-29] MEDS ORDERED: mag hydrox/Alum hydrox/simeth 30ml oral suspension PO PRN (00:40)
[2021-10-29] MEDS ORDERED: Permethrin Cream 60gm TP ONE (00:45)
[2021-10-29] MEDS ORDERED: levetiracetam 250mg tablet PO ONE (00:45)
[2021-10-29] MEDS ORDERED: albuterol 2.5 MG/3 ML nebule NEB PRN (00:45)
[2021-10-29] MEDS ORDERED: Permethrin 1% 59ml topical rinse TP ONE (00:45)
[2021-10-29] MEDS ORDERED: heparin 10,000 units/1 ML INJ IV PRN (00:55)
[2021-10-29] MEDS ORDERED: ipratropium/albuterol 3ml nebule IH SCH (02:00)
--- NOTE | 2021-10-29 03:00 | NUR ---
Patient in ED 4, to be admitted to PCU 8521D, I have received report from ED RN Ani and had the opportunity to ask questions and assume patient care.
--- NOTE | 2021-10-29 03:00 | NUR ---
spoke w/ Dr Tovar re: pt blood pressure 79/49, no new orders at this time. people in trandelenburg, awake, alert, given warm blankets
[2021-10-29] MEDS: ipratropium/albuterol 3ml nebule IH SCH ×2 (03:11→09:33)
--- NOTE | 2021-10-29 03:30 | NUR ---
Pt arrived 3019A, skin very cold to touch, covered with multiple warm blanket to improve warmth and temp. Pt denies chest pain on admission. Call light placed within easy reach of pt. POC of care discussed with pt, verbalized understanding.
[2021-10-29] MEDS ORDERED: sodium polystyrene sulfonate 15gm/60ml oral suspension PO ONE (04:25)
--- NOTE | 2021-10-29 05:34 | NUR ---
Pt went into sudden rapid Afib, Hr up 190, rushed to pt's room, found pt, unresponsive, cold and bluish in color, code blue activated.
[2021-10-29] MEDS ORDERED: albuterol 2.5 MG/3 ML nebule ONE (05:49)
[2021-10-29] MEDS ORDERED: heparin 25,000 UNIT/250ml bag 250 ML IV SCH (06:00)
--- NOTE | 2021-10-29 06:07 | NUR ---
Pt transferred ICU 38,
[2021-10-29] MEDS ORDERED: EPIneph 5MG & 1000mg Calcium/250ML bag IV PRN ×3 (06:10)
--- NOTE | 2021-10-29 06:13 | NUR ---
Problems reprioritized. Patient report given, questions answered & plan of care reviewed with KATI Holm.
[2021-10-29] MEDS ORDERED: LIDOcaine 2% 10ml TOPICAL JELLY (Urojet) TP ONE (06:50)
[2021-10-29] MEDS ORDERED: albuterol 2.5 MG/3 ML nebule CONTNEB PRN (06:55)
[2021-10-29] MEDS ORDERED: vasopressin inj. 40 UNIT in dextrose 5%-water 50ml 38 ML IV SCH (06:55)
[2021-10-29] MEDS ORDERED: levoTHYROXINE 25mcg tablet PO SCH (07:00)
--- NOTE | 2021-10-29 07:07 | NUR ---
Virtual radiology called: Per Dr. Feng, pneumothorax present on CXR. note: Chest tube to left chest placed by Dr. Jones during morning para code blue.
[2021-10-29 07:14] LABS: ABG BASE EXCESS -17.3 mmol/L (-2.0-2.0); ABG HCO3 12.3 mmol/L (22.0-26.0); ABG OXYGEN SATURATION 98.7 % (94-97); FCOHb 0.1 % (0.0-3.9); FMetHb 0.7 % (0.0-1.5); FO2Hb 97.9 % (94-97); PATIENT TEMPERATURE 33.3; PEEP 5 cm H2O; RESPIRATORY RATE 30 b/min; TIDAL VOLUME 481 mL; TOTAL HEMOGLOBIN 8.8 G/dl (14.0-18.0)
[2021-10-29] MEDS ORDERED: carvedilol 6.25mg tablet PO SCH (07:30)
[2021-10-29] MEDS ORDERED: docusate sod 100mg capsule PO SCH (08:00)
[2021-10-29] MEDS ORDERED: Umeclidinium Brm/Vilanterol Tr (Anoro Ellipta 62.5-25 Mcg INH) PO SCH (08:00)
[2021-10-29] MEDS ORDERED: NORepinephrine 1 mg/ml inj IV ONE (08:00)
[2021-10-29] MEDS ORDERED: pantoprazole 40MG/NS 100ML BAG 100 ML IV SCH (08:00)
[2021-10-29] MEDS ORDERED: dextrose 50%-water 50ml dispensing syringe IV ONE (08:00)
[2021-10-29] MEDS ORDERED: K and/or MAG REPLACEMENT MC SCH (08:00)
[2021-10-29] MEDS ORDERED: methylPREDNISolone sod succ 125mg/2ml vial IV SCH (08:00)
[2021-10-29] MEDS ORDERED: levetiracetam 250mg tablet PO SCH (08:00)
[2021-10-29] MEDS ORDERED: epiNEPHrine 0.1mg/ml 10ml syringe ONE (08:00)
[2021-10-29] MEDS ORDERED: calcium chloride 100 MG/1 ML inj IV ONE (08:00)
[2021-10-29] MEDS ORDERED: sodium bicarbonate (8.4%) 1 mEq/ml syringe ONE ×3 (08:00)
[2021-10-29] MEDS ORDERED: amiodarone 200mg tablet PO SCH (08:00)
[2021-10-29] MEDS ORDERED: sod chloride 0.9% 10ml flush syringe IV ONE (08:00)
[2021-10-29] MEDS ORDERED: sodium bicarbonate (8.4%) inj. 150 MEQ in dextrose 5%-water 1,000 ML IV SCH (08:20)
[2021-10-29] MEDS ORDERED: aspirin 81mg tab.chew PO SCH (08:30)
[2021-10-29] MEDS ORDERED: FENTANYL-0.9 % NACL/PF 100 ML IV PRN (08:35)
[2021-10-29] MEDS: NORepinephrine 8mg/ 250ml NS 250 ML IV SCH ×2 (09:13→10:21)
[2021-10-29] MEDS: midazolam 1 mg/ML 2ml injection ONE ×2 (09:20→10:29)
[2021-10-29 09:31] LABS: ABG HCO3 16.1 mmol/L (22.0-26.0); ABG OXYGEN SATURATION 86.7 % (94-97); ABG PCO2 (T) 34.7 mmHg (35.0-48.0); FCOHb 0.1 % (0.0-3.9); FMetHb 0.4 % (0.0-1.5); FO2Hb 86.3 % (94-97); PATIENT TEMPERATURE 33.1; PEEP 5 cm H2O; RESPIRATORY RATE 30 b/min; TIDAL VOLUME 400 mL; TOTAL HEMOGLOBIN 8.5 G/dl (14.0-18.0)
--- NOTE | 2021-10-29 10:42 | NUR ---
Arrived on shift to patient being wheeled up from PCU post-code blue at 0610, per report patient was found down and a code blue was called in which Dr. Jones responded. Dr. Jones intubated patient and ran code blue. When patient was brought to ICU room 2037 patient was being bagged by RT. Patient was on Epi-moisés at 5 and Levophed at 0.99. Upon arrival patient's HR 71 BP 149/101 O2 sat of 98%. Chest xray was done and showed a pneumothorax on the right side, Dr. Jones confirmed this and opted to place a chest tube. Chest tube was placed at 0620. By this time there were about 4 attempts to get another PIV seeing as how the patient had both the Levo and Epi-Moisés running in the right external jugular PIV. Dr. Jones stated that he would not be able to place any lines at this time due to needing to be back in the ED. Dr. Jones stated that the new preschool adviser should be in ICU at 0700. Shortly after this at about 0645 patient's BP began dropping to 80/58 and Epi-Moisés was titrated up to 10. Dr. Kirby consulted via Me[facility] and was brought into the room with portable computer. Dr. Kirby was informed that we only have an external jugular PIV. She stated that our new doctor should be here shortly in order to hopefully place a central line for us. At 0705 patient's blood pressure was down to 71/32 and Vasopressin was started per MD order. Dr. Kirby also ordered for a salmeron catheter to be placed. Salmeron was placed via sterile technique and a flash of urine was confirmed. Once the salmeron was in place there was a leak of urine around the meatus and salmeron catheter tubing for a brief moment, however, this eventually stopped. Dr. Kirby asked for several labs however the human resources trainee had a very difficult time drawing the patient and was only able to draw a LA, this eventually resulted and was 13.3, Rich TAYLOR notified. At about 0730 patient started to open his eyes and look to whichever way her heard a voice, he was also able to move extremities but was not following commands. Due to the patient waking up it was confirmed that we would not be starting TTM. Dr. Hubbard arrived at about 07[address] a central line after a brief synapsis of what was going on. Dr. Hubbard prepped for a right IJ quad lumen placement. Dr. Hubbard asked for 4mg of Versed to be given IVP, this was done at about 0755 and after he asked for 2 amps of Bicarb to be given, this was also completed. Central line was placed using sterile technique. At 0845 Dr. Hubbard then placed an arterial line in the right femoral artery. Dr. Hubbard then asked for an additional 4 mg of Versed to be given IVP prior to starting the Arterial line placement. Arterial pressure was reading 109/66. Both lines were cleaned and dressed. Pressors were switched to central line. Fentanyl was started and so was a bicarb drip per MD order.
[2021-10-29 12:03] LABS: EOSINOPHILS % (AUTO) 0 % (0-6); LYMPHOCYTES # (AUTO) 0.4 X10'3 (1.1-4.8)
[2021-10-29 12:04] LABS: BASOPHILS # (AUTO) 0.1 X10'3 (0-0.2); BASOPHILS % (AUTO) 0.9 % (0-1); LYMPHOCYTES % (AUTO) 4.9 % (21-51); MEAN PLATELET VOLUME 7.8 FL (7.4-10.4); MONOCYTES # (AUTO) 0.9 X10'3 (0-0.9); MONOCYTES % (AUTO) 10.6 % (2-12); NEUTROPHILS # (AUTO) 6.7 X10'3 (1.8-7.7); NEUTROPHILS % (AUTO) 83.6 % (42-75); PLATELET COUNT 105 X10'3 (140-440); RED BLOOD COUNT 3.02 X10'6 (4.70-6.10)
--- NOTE | 2021-10-29 12:10 | NUR ---
pt presenting with crepitus to upper body, torso and scrotum. Dr. Hubbard notified. stat cxr ordered. bp dropped, notified. pressers increased. supplies prepped for possible repeat pneumothorax. abd ordered stat Addendum: 10/29/21 at 1214 by Margarette Calloway RN liter bolus ordered and infusing via pressure bag Addendum: 10/29/21 at 1215 by Margarette Calloway RN pressers maxed. bp continues low: 69/46
[2021-10-29 12:11] LABS: APTT 42 SECONDS (22-32)
--- NOTE | 2021-10-29 12:19 | NUR ---
Initial: Pt intubated, admit dx heart failure, s/p cardiac arrest this AM per EMR, currently being warmed per RN. Pt on Na bicarbinate/D5 at 150 ml/hr providing 612 kcals/d. Current diet order heart healthy, recommend stopping of heart healthy diet given intubation. Recommend TF if expected prolonged intubation and thiamin, folate, and MVI given hx of EtOH if MD agreeable, see recs below. No BM documented, receiving routine colace. Will continue to monitor. Recommendations: 1. IF TF, continuous TF using Vital AF with 84 mL/hr goal rate to provide 2016 mL total volume/day, 2419 kcal, 151 g protein, and 1635 mL water 2. IF TF, 100 mL water flushes q 4hr; monitor serum Na 3. Thiamin, folate, MVI given EtOH hx 4. IF TF, Prealbumin q Thursday/ 5. Daily scaled weights 6. Routine bowel care Addendum: 10/29/21 at [address] Amended: Links added. Addendum: 10/29/21 at [address] LYNNETTE has reviewed and approves of above note.
[2021-10-29 12:30] LABS: CLARITY,URINE CLOUDY (Clear); COLOR,URINE YELLOW (Yellow); GLUCOSE, URINE 100 mg/dl (Neg); KETONES,URINE NEGATIVE (Neg); LEUKOCYTE ESTERASE ,URINE NEGATIVE (Neg); NITRITES, URINE NEGATIVE (Neg); OCCULT BLOOD,URINE MODERATE (Neg); PROTEIN,URINE 100 mg/dl (Neg)
[2021-10-29 12:30] LABS: HEMOGLOBIN 7.3 g/dl (14.0-17.9)
[2021-10-29 12:31] LABS: HEMATOCRIT 23.5 % (42.0-52.0); MEAN CORPUSCULAR HEMOGLOBIN 24.2 PG (27.0-31.0); MEAN CORPUSCULAR HGB CONC 31.1 g/dL (33.0-36.5); RED CELL DISTRIBUTION WIDTH 21.3 % (11.5-14.5)
[2021-10-29 12:33] LABS: URINE AMPHETAMINE SCREEN NEGATIVE (Neg); URINE BARBITUATE SCREEN NEGATIVE (Neg); URINE BENZODIAZEPINES SCREEN POSITIVE (Neg); URINE CANNABINOID SCREEN NEGATIVE (Neg); URINE COCAINE SCREEN NEGATIVE (Neg); URINE METHADONE SCREEN NEGATIVE (Neg); URINE OPIATE SCREEN NEGATIVE (Neg); URINE PHENCYCLIDINE SCREEN NEGATIVE (Neg)
[2021-10-29 12:37] LABS: UA COLLECTION TYPE NON-SPECIFIED
[2021-10-29 12:39] LABS: BACTERIA,URINE 1+ /HPF (Neg); SPERM FEW /HPF (NEGATIVE)
[2021-10-29 12:40] LABS: MUCUS STRANDS NONE SEEN /LPF (Neg); SQUAMOUS EPITHELIAL CELL,UR FEW /LPF (FEW)
[2021-10-29 12:41] LABS: AMORPHOUS URATES 1+
[2021-10-29 12:45] LABS: ANISOCYTOSIS 3+; PLATELET ESTIMATE NORMAL
[2021-10-29 12:46] LABS: BURR CELLS FEW; ELLIPTOCYTES 1+; MICROCYTOSIS 1+
[2021-10-29 12:47] LABS: HYPOCHROMASIA 1+; LARGE PLATELETS FEW; POLYCHROMASIA 1+; TEAR DROP CELLS 1+
[2021-10-29 12:48] LABS: SCHISTOCYTES FEW
[2021-10-29 12:54] LABS: ALBUMIN 2.3 G/DL (3.4-5.0); ALBUMIN/GLOBULIN RATIO 0.9 (1.1-1.5); ALKALINE PHOSPHATASE 138 IU/L (46-116); ANION GAP 17 (8-16); BILIRUBIN,TOTAL 3.4 MG/DL (0.1-1.0); BLOOD UREA NITROGEN 23 MG/DL (7-18); BUN/CREATININE RATIO 13.3 (5.4-32.0); CALCIUM 9.4 MG/DL (8.5-10.1); CHLORIDE 104 MMOL/L (99-107); CREATININE 1.73 MG/DL (0.60-1.10); PHOSPHORUS 6.1 MG/DL (2.3-4.5); POTASSIUM 5.3 MMOL/L (3.5-5.1); SODIUM 143 MMOL/L (135-145); TOTAL CARBON DIOXIDE 21.7 MMOL/L (24-32); eGFR 40 ML/MIN
[2021-10-29 13:05] LABS: ALANINE AMINOTRANSFERASE 1825 U/L (12-78); GLUCOSE 209 MG/DL (70-104)
[2021-10-29 13:16] LABS: ASPARTATE AMINO TRANSFERASE 3323 U/L (10-37)
[2021-10-29 13:16] LABS: ABG BASE EXCESS -3.1 mmol/L (-2.0-2.0); ABG HCO3 23.2 mmol/L (22.0-26.0); ABG OXYGEN SATURATION 98.2 % (94-97); ABG PCO2 (T) 40.4 mmHg (35.0-48.0); ABG PO2 (T) 109.8 mmHg (75.0-100.0); FCOHb 0.4 % (0.0-3.9); FMetHb 0.2 % (0.0-1.5); FO2Hb 97.6 % (94-97); PATIENT TEMPERATURE 32.6; PEEP 5 cm H2O; RESPIRATORY RATE 30 b/min; TIDAL VOLUME 350 mL; TOTAL HEMOGLOBIN 7.6 G/dl (14.0-18.0)
[2021-10-29] MEDS ORDERED: piperacillin/tazo 3.375gm/50ml 50 ML IV SCH (13:17)
[2021-10-29] MEDS ORDERED: VANCOMYCIN 750MG IV in NS 250 ML IV SCH (14:00)
--- NOTE | 2021-10-29 14:15 | NUR ---
At 1210 patient was noted to have subcutaneous air throughout left chest, left side of face, abdomen, and scrotum. MD was notified and then he came bedside. He ordered for 1L of NS bolus and 1 amp of bicarb to be given. By 1215 the patient's blood pressure was as low as 69/46. Vasopressin, Levophed, and Epi-jennifer were all maxed out. After the chest xray Dr. Hubbard stated that the chest tube looked to be in the correct spot but the air leak in the atrium had stopped so he had decided to readjust it. He prepped the area, cut the previous suture, adjusted the tube, air leak was noted again in the atrium, and resutured the tube in place. Chest tube site was then cleaned and dressed by MD. By 1230 the patient's blood pressure had increased significantly and the pressors were titrated down to only leave the levophed at 0.5 per MD. This sustained for only about 30 minutes and then the patient began to have a similar blood pressure episode. Patient's blood pressure began to drop again into the 70s systolic, pressors were titrated up, 2 amps of bicarb given and then slowly the pressure began to rise until the map was 119. Per the MD it seems that the patient's blood pressure is responding to the bicarb. Pressors were again titrated down leaving the Levophed at 0.7. Per MD the bicarb drip was turned up to 200mL/hr. KUB was ordered and done at 1315 but nothing super alarming per MD. At 1350 Patient's blood pressure was again dropping and 2 amps of bicarb was again given as well as increasing all pressors. This time the patient did not respond to these. Pressure continued to drop. contacted the patient's brother Dinesh Rader who stated the he did not care what we decide to do and that it was the doctor's call. Dinesh stated the doctor could make all decisions. He further explained that he was not in contact with his brother anymore. Once a pulse was lost on the patient, Dr. Hubbard stated to stop with all intervention. Patient was pronounced by Dr. Hubbard at 1412.
[2021-10-29 14:27] LABS: ALBUMIN 1.9 G/DL (3.4-5.0); ALBUMIN/GLOBULIN RATIO 0.8 (1.1-1.5); ALKALINE PHOSPHATASE 124 IU/L (46-116); ANION GAP 20 (8-16); BLOOD UREA NITROGEN 22 MG/DL (7-18); BUN/CREATININE RATIO 12.9 (5.4-32.0); CALCIUM 7.8 MG/DL (8.5-10.1); CHLORIDE 107 MMOL/L (99-107); GLUCOSE 173 MG/DL (70-104); PHOSPHORUS 6.6 MG/DL (2.3-4.5); POTASSIUM 5.4 MMOL/L (3.5-5.1); SODIUM 151 MMOL/L (135-145); TOTAL PROTEIN 4.3 G/DL (6.4-8.2); eGFR 41 ML/MIN
[2021-10-29 14:29] LABS: ALANINE AMINOTRANSFERASE 1701 U/L (12-78); VANCOMYCIN,RANDOM 0.3 UG/ML
--- NOTE | 2021-10-29 14:30 | NUR ---
IV spreadsheet does not accurately depict the titration of the IV pressors, these medications were titrated per protocol/MD orders. Patient's blood pressure was labile for the majority of the day.
[2021-10-29 14:48] LABS: ASPARTATE AMINO TRANSFERASE 3242 U/L (10-37)
--- NOTE | 2021-10-29 16:22 | NUR ---
1425 Digital Strategy Director notified of patient's passing and that it has been less than 24 hours since admit, fixer boarding room released patient. 1432 [facility] network notified, patient released by them as well. 1523 [facility] in [place] called and they stated they would be here as soon as they could to pick the patient up. Patient is cleaned up and prepared for [facility] to come get him
--- NOTE | 2021-10-29 17:10 | NUR ---
Called brother, Dinesh Rader, he is aware of the patient passing and aware of the patient going to [facility] in [place].
[2021-11-01] MEDS ORDERED: VANCOMYCIN LEVEL IV ONE (13:30)
== END 2021-10-29 18:00 | DRG 208 ==
LOC: ER 20:22 → UNDOADMIN 10-29 00:37 → ED HOLD 10-29 00:37 → PCU 3S 10-29 03:38 → ICU 2S 10-29 06:30 → PCU 3S 10-29 06:30 → UNDODISIN 10-29 18:00
PROVIDERS: ADMIT Internal Medicine; ATTEND Internal Medicine
PROC: 5A1935Z Respiratory Ventilation, Less than 24 Consecutive Hours (ICD-10-PCS; principal; 2021-10-29)
PROC: 0BH17EZ Insertion of Endotracheal Airway into Trachea, Via Natural or Artificial Opening (ICD-10-PCS; 2021-10-29)
PROC: 5A12012 Performance of Cardiac Output, Single, Manual (ICD-10-PCS; 2021-10-29)
PROC: 0W9B30Z Drainage of Left Pleural Cavity with Drainage Device, Percutaneous Approach (ICD-10-PCS; 2021-10-29)
PROC: 02HV33Z Insertion of Infusion Device into Superior Vena Cava, Percutaneous Approach (ICD-10-PCS; 2021-10-29)
PROC: B548ZZA Ultrasonography of Superior Vena Cava, Guidance (ICD-10-PCS; 2021-10-29)
PROC: 04HY32Z Insertion of Monitoring Device into Lower Artery, Percutaneous Approach (ICD-10-PCS; 2021-10-29)
DX: J96.01 Acute respiratory failure with hypoxia (principal); I21.4 Non-ST elevation (NSTEMI) myocardial infarction; I50.23 Acute on chronic systolic (congestive) heart failure; J93.0 Spontaneous tension pneumothorax; N17.0 Acute kidney failure with tubular necrosis; G93.1 Anoxic brain damage, not elsewhere classified; D62 Acute posthemorrhagic anemia; J93.82 Other air leak; G93.40 Encephalopathy, unspecified; I11.0 Hypertensive heart disease with heart failure; E16.2 Hypoglycemia, unspecified; E78.00 Pure hypercholesterolemia, unspecified; F10.10 Alcohol abuse, uncomplicated; G40.909 Epilepsy, unspecified, not intractable, without status epilepticus; I25.10 Atherosclerotic heart disease of native coronary artery without angina pectoris; E87.5 Hyperkalemia; I46.9 Cardiac arrest, cause unspecified; Z60.2 Problems related to living alone; I95.9 Hypotension, unspecified; I25.5 Ischemic cardiomyopathy; Z20.822 Contact with and (suspected) exposure to COVID-19; F17.200 Nicotine dependence, unspecified, uncomplicated; I48.91 Unspecified atrial fibrillation; I73.9 Peripheral vascular disease, unspecified; J43.9 Emphysema, unspecified; Z86.73 Personal history of transient ischemic attack (TIA), and cerebral infarction without residual deficits; I25.2 Old myocardial infarction; Z91.14 Patient's other noncompliance with medication regimen; Z95.1 Presence of aortocoronary bypass graft; Z56.0 Unemployment, unspecified; Z88.8 Allergy status to other drugs, medicaments and biological substances; Z95.0 Presence of cardiac pacemaker; Z79.899 Other long term (current) drug therapy
CPT/HCPCS: 36415; 36600; 71045; 74018; 80053; 80202; 80305; 80320; 81001; 82803; 82948; 83605; 83735; 83880; 84100; 84132; 84145; 84443; 84484; 85007; 85008; 85018; 85025; 85610; 85730; 86140; 87040; 87081; 87088; 87635; 93005; 93306; 94002; 94640; 94760; 96365; 99291; C9113; G0378; J0171; J0282; J1644; J2250; J2930; J3010; J3490; J7030; J7060; J7070; U0003; U0005